=== PATIENT | female | born 1980 | race Caucasian/White ===

== ENCOUNTER 2019-04-13 18:53 | Inpatient (IN) | payer SELFPAY ==
[~2019-04-13] VITALS: Ht 172.7 cm; Wt 71.0 kg
[2019-04-13] MEDS ORDERED: SODIUM CHLORIDE 0.9% 1,000 ML IVB ONE (19:17)
[2019-04-13] MEDS ORDERED: PANTOPRAZOLE 40 MG/10 ML VIAL INJ IV STA (19:17)
[2019-04-13] MEDS ORDERED: MORPHINE SULFATE 4 MG/ML SYR/VIAL IV ONE (19:30)
[2019-04-13] MEDS ORDERED: ONDANSETRON HCL 4 MG/2 ML VIAL IV ONE (19:30)
[2019-04-13 20:40] LABS: Basophils # (auto) 0 uL; Basophils % (auto) 0.2 % (0.0-2.0); Eosinophils # (auto) 0 uL; Monocytes # (auto) 0.8 uL
[2019-04-13 20:42] LABS: Hemoglobin 14.4 g/dL (12.2-16.2); Lymphocytes % (auto) 7.6 % (10.0-50.0); Mean Corpuscular Hemoglobin 28.3 pg (28.0-32.0); Mean Corpuscular Hgb Conc. 32.8 g/dL (32.0-36.0); Mean Corpuscular Volume 86.2 fL (80.0-100.0); Neutrophils # (auto) 11.9 uL; Neutrophils % (auto) 86.2 % (37.0-80.0); Platelet Count (auto) 568 10^3/uL (140-450); Red Blood Cells 5.11 10^6/uL (4.0-5.20); Red Cell Distribution Width 14.6 % (11.8-14.3); White Blood Cell 13.7 10^3/uL (4.4-10.8)
[2019-04-13 20:53] LABS: Albumin 4.6 g/dL (3.4-5.0); BUN/Creatinine Ratio 11.6; Calcium 9.4 mg/dL (8.5-10.1); Potassium 3.9 mmol/L (3.5-5.1)
[2019-04-13 20:56] LABS: Bilirubin, Total 0.5 mg/dL (0.2-1.0); Total Protein 8.2 g/dL (6.4-8.2)
[2019-04-13] MEDS ORDERED: ALBUTEROL SULF 2.5 MG/0.5ML(0.5%) NEB SOLN HHN ONE (21:15)
[2019-04-13] MEDS ORDERED: LORazepam 2MG/ML-1ML VIAL IV ONE (21:45)
[2019-04-13] MEDS ORDERED: MORPHINE SULFATE 4 MG/ML SYR/VIAL IV PRN (22:15)
[2019-04-13] MEDS: D5W/SOD CHL 0.45% 1,000 ML IV SCH (22:34)
[2019-04-13] MEDS: HYDROmorphone HCL 2 MG/ML VL IV PRN (22:39)
[2019-04-13 23:17] VITALS: BP 124/73
--- NOTE | 2019-04-13 23:17 | NUR ---
MS admit from ER MARTHA WYNN admitted to tele/MS after SBAR received. Patient oriented to EDUAR ROJAS, RN primary RN, west unit, room 296, bed A, and unit policies regarding patient care and visiting hours. Patient weighed by bedscale and encouraged to call if they need something. All questions and concerns addressed, patient verbalized understanding. NG tube in place at 59 connected to low intermittent suctioning. Patient complained of pain but was told not pain medication was due at the moment.
[2019-04-13 23:25] VITALS: BP 124/73
[2019-04-14] MEDS: HYDROmorphone HCL 2 MG/ML VL IV PRN ×5 (02:47→20:07)
[2019-04-14] MEDS ORDERED: TEMA30CA PO (03:49)
[2019-04-14] MEDS ORDERED: BENA20TA14 PO (03:50)
[2019-04-14 05:00] VITALS: BP 125/71
[2019-04-14] MEDS: ONDANSETRON HCL 4 MG/2 ML VIAL IV PRN ×4 (05:23→23:59)
[2019-04-14 06:31] LABS: Basophils # (auto) 0 uL; Eosinophils # (auto) 0 uL; Lymphocytes # (auto) 0.7 uL; Mean Corpuscular Hemoglobin 28.5 pg (28.0-32.0); Red Cell Distribution Width 14.9 % (11.8-14.3); White Blood Cell 7.3 10^3/uL (4.4-10.8)
[2019-04-14 06:39] LABS: Basophils % (auto) 0.1 % (0.0-2.0); Hematocrit 38.8 % (36.0-46.0); Hemoglobin 12.7 g/dL (12.2-16.2); Lymphocytes % (auto) 9.2 % (10.0-50.0); Mean Corpuscular Hgb Conc. 32.9 g/dL (32.0-36.0); Mean Corpuscular Volume 86.8 fL (80.0-100.0); Monocytes # (auto) 0.5 uL; Monocytes % (auto) 7.2 % (0.0-12.0); Neutrophils # (auto) 6.1 uL; Neutrophils % (auto) 83.5 % (37.0-80.0); Platelet Count (auto) 492 10^3/uL (140-450); Red Blood Cells 4.46 10^6/uL (4.0-5.20)
[2019-04-14 06:52] LABS: Calcium 8.4 mg/dL (8.5-10.1)
--- NOTE | 2019-04-14 06:59 | NUR ---
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
[2019-04-14 08:00] VITALS: BP 122/71
--- NOTE | 2019-04-14 08:00 | NUR ---
Morning note Patient resting in bed with even and unlabored respirations, no distress noted. Instructed patient on POC, fall precautions and to call for assistance as needed. Patient verbalized understanding. fall precautions in place with call light within reach. will continue to monitor q1hr & PRN.
--- NOTE | 2019-04-14 09:30 | NUR ---
Patient vomiting clear emesis. Patient medicated per MD order.
[2019-04-14] MEDS ORDERED: GASTROGRAFIN 120 ML SOL ONE (10:09)
[2019-04-14] MEDS ORDERED: OMNIPAQUE ORAL SOLN 500ml 12mg/ml PO ONE (10:48)
--- NOTE | 2019-04-14 10:52 | NUR ---
Patient off unit at radiology.
[2019-04-14 11:07] LABS: Cholesterol 208 mg/dL (< 200); HDL Cholesterol 82 mg/dL (40-59); LDL Cholesterol 119 mg/dL (< 100); Triglycerides 69 mg/dL (< 150)
--- NOTE | 2019-04-14 11:38 | NUR ---
Paged MD/Patient returned to unit Paged Dr. Palacios to notify MD that patient was unable to tolerate the ordered small bowel series.
--- NOTE | 2019-04-14 11:42 | NUR ---
Dr. Palacios updated MD to come to the unit.
--- NOTE | 2019-04-14 11:55 | NUR ---
was at bedside - Dr. Palacios Order received and read back to verify.
[2019-04-14 12:00] VITALS: BP 133/70
--- NOTE | 2019-04-14 12:44 | NUR ---
UA collected and sent to lab per MD order.
[2019-04-14 13:02] LABS: Urine Bacteria NONE SEEN /hpf (None Seen); Urine Blood Negative /uL (Negative); Urine Budding Yeast OCCASIONAL /hpf (None Seen); Urine Mucus FEW (None Seen); Urine Specific Gravity 1.031 (1.001-1.035); Urine WBC 2 /hpf (0 - 5)
[2019-04-14] MEDS: METOCLOPRAMIDE HCL 5MG/ml INJ 2ml VIAL IV PRN (14:41)
[2019-04-14] MEDS: D5W/SOD CHL 0.45% 1,000 ML IV SCH (16:05)
--- NOTE | 2019-04-14 16:05 | NUR ---
RE: nausea Patient stated "the new nausea medication is helping much better. I've only thrown up once." Patient sitting in bed with even and unlabored respiration, no distress noted.
[2019-04-14 17:00] VITALS: BP 127/75
--- NOTE | 2019-04-14 18:51 | NUR ---
Closing note Patient resting in bed with even and unlabored respirations, no distress noted. Fall precautions in place with call light within reach.
--- NOTE | 2019-04-14 19:16 | NUR ---
Care endorsed to GEORGIA Pitts.
[2019-04-14] MEDS: LORazepam 0.5 MG TAB PO PRN (19:28)
[2019-04-14 22:56] VITALS: BP 116/68
[2019-04-15] MEDS: HYDROmorphone HCL 2 MG/ML VL IV PRN ×10 (00:01→23:51)
[2019-04-15] MEDS: LORazepam 0.5 MG TAB PO PRN ×2 (02:49→22:58)
[2019-04-15] MEDS: METOCLOPRAMIDE HCL 5MG/ml INJ 2ml VIAL IV PRN ×3 (04:01→17:29)
[2019-04-15] MEDS: D5W/SOD CHL 0.45% 1,000 ML IV SCH (04:06)
[2019-04-15 05:17] VITALS: BP 120/66
--- NOTE | 2019-04-15 07:15 | NUR ---
Morning note Patient resting in bed with even and unlabored respirations, no distress noted. Instructed patient on POC, fall precautions and to call for assistance as needed. Patient verbalized understanding. fall precautions in place with call light within reach. NGT in place per MD order. Patient reports pain and nausea. PRN anti-nausea and PRN pain medication not able to be administered at this time per MD order. Instructed patient on time medication can be administered. Patient verbalized understanding. Will continue to monitor q1hr & PRN.
--- NOTE | 2019-04-15 07:35 | NUR ---
RE: Pain Patient requesting pain and anti-nausea medication. Informed patient that PRN pain and anti-nausea medication is not able to be administered at this time per MD order. Informed patient of time that the medication can be administered. Patient verbalized understanding. Heat pack given to patient per patient's request for comfort. Call light within reach. Will continue to monitor q1hr & PRN.
[2019-04-15 08:00] VITALS: BP 137/89
--- NOTE | 2019-04-15 08:14 | NUR ---
RE: pain Patient reports increase in pain with minimal relief from ordered PRN pain medication. Patient reports vomiting with minimal relief from ordered PRN anti-nausea medication. Patient states "I can't do this another day. This pain is unbearable. I can't take it." Patient reports no BM, and reports passing gas 3 times in the past 12 hours. Patient reports the pain 10/10 located in the abdomen and lower back. NGT in place per MD order. Clear liquid output from NGT. Positive placement confirmed by auscultation.
--- NOTE | 2019-04-15 08:15 | NUR ---
Paged Dr. Palacios RE: pain
--- NOTE | 2019-04-15 08:38 | NUR ---
Updated Dr. Palacios - patient to be brought to pre-op now per MD
--- NOTE | 2019-04-15 08:52 | NUR ---
Patient taken to pre-op via hospital bed. Respirations even and unlabored, no distress noted. NGT in place. IV patent with no leaking and/or infiltration noted. Patient's fiance at bedside and updated on POC.
[2019-04-15] MEDS ORDERED: SUCCINYLCHOLINE CHLORIDE 20 MG/ML 10ML VIAL IV ONE (08:57)
[2019-04-15] MEDS ORDERED: LIDOCAINE 1% (LOCAL ANESTH.) PF 5ml SDV ONE (08:57)
[2019-04-15] MEDS ORDERED: ceFAZolin 1GM/50ML 50 ML IV ONE (09:04)
[2019-04-15] MEDS ORDERED: MIDAZOLAM HCL 1MG/1ML-2 ML VIAL ONE (09:24)
[2019-04-15] MEDS ORDERED: ROCURONIUM 10MG/ML 10ML VIAL IV ONE (09:30)
[2019-04-15] MEDS ORDERED: PROPOFOL 10 MG/ML 20 ML IV ONE (09:31)
[2019-04-15] MEDS ORDERED: ONDANSETRON HCL 4 MG/2 ML VIAL IV PRN (09:45)
[2019-04-15] MEDS ORDERED: NALOXONE HCL 0.4 MG/ML VIAL IV PRN (09:45)
[2019-04-15] MEDS ORDERED: HYDROmorphone HCL 2 MG/ML VL IV PRN (09:45)
[2019-04-15] MEDS ORDERED: fentaNYL CITRATE 100 MCG/2 ML VL ONE (09:47)
--- NOTE | 2019-04-15 10:04 | NUR ---
RE: intervention patient off unit at procedure. Addendum: 04/15/19 at 1141 by Jocelyn Cline RN Amended: Links added.
[2019-04-15] MEDS ORDERED: MEPERIDINE HCL (50 MG/ML) 1 ML VIAL ONE (10:20)
[2019-04-15] MEDS ORDERED: GLYCOPYRROLATE 0.2 MG/ML 1ML VIAL ONE (11:20)
[2019-04-15] MEDS ORDERED: NEOSTIGMINE 1 MG/ML INJ (10mg/10ML VIAL) ONE (11:20)
--- NOTE | 2019-04-15 12:00 | NUR ---
RE: intervention Patient off unit at procedure. Addendum: 04/15/19 at 1311 by Jocelyn Cline RN Amended: Links added.
[2019-04-15] MEDS ORDERED: ACETAMINOPHEN IV 100 ML IV ONE (12:04)
[2019-04-15] MEDS ORDERED: ACETAMINOPHEN IV 1000 MG/100ML (10MG/ML) IV ONE (12:15)
--- NOTE | 2019-04-15 13:00 | NUR ---
Patient returned to unit via hospital bed. Respirations even and unlabored respirations, no distress noted. NGT in place per MD order. Fernandez's Tube in place per MD order. Dressing to the abdomen is clean, dry and intact. Margarita patient's fiance, at bedside.
--- NOTE | 2019-04-15 13:01 | NUR ---
was at bedside - Dr. Fortune Orders received and read back to verify.
[2019-04-15] MEDS ORDERED: MORPHINE SULF INJ 2 MG/ML SYRINGE 1ML IV PRN (13:15)
[2019-04-15] MEDS ORDERED: KETOROLAC TROMETH 30 MG/ML 1ML VIAL IV ONE (13:15)
[2019-04-15] MEDS ORDERED: LACTATED RINGER'S 1,000 ML IV ONE (13:15)
--- NOTE | 2019-04-15 13:30 | NUR ---
Bilateral SCDs placed per MD order.
--- NOTE | 2019-04-15 15:03 | NUR ---
Patient transferred to room 276A via hospital bed. All personal belongings transferred with the patient. Margarita, patient's fiance, at bedside.
--- NOTE | 2019-04-15 15:46 | NUR ---
RE: Pain; contacted MD Contacted Dr. Fortune to notify that patient is reporting pain is not being managed with current PRN pain medication. Current VS read to MD. Dr. Fortune verbalized understanding. This RN instructed to continue to monitor patient and report back to MD in an hour RE: patient's pain.
--- NOTE | 2019-04-15 16:54 | NUR ---
RE: pain; updated MD Called Dr. Fortune to update MD on patient's pain after administration of PRN pain medication. Patient continues to report pain 10/10 in the abdomen. Patient stated "The pain is off the charts. I can't handle it. The morphine didn't even touch it." Dressing to abdomen is clean, dry and intact. Orders received and read back to verify.
[2019-04-15 17:02] VITALS: BP 117/60
--- NOTE | 2019-04-15 17:30 | NUR ---
Telemonitor #[id number] placed on the patient per MD order.
--- NOTE | 2019-04-15 19:28 | NUR ---
150ml output NGT; 0ml output Fernandez's Tube
--- NOTE | 2019-04-15 19:29 | NUR ---
Care endorsed to GEORGIA Escobar. Patient resting in bed with even and unlabored respirations, no distress noted. NGT in place per MD order and connected to LIS per MD order. Fernandez's Tube in place per MD order and connected to LIS per MD order. Abdominal binder in place per MD order. Dressing to the abdomen is clean, dry and intact. Bilateral SCD's in place per MD order. Patient able to shift weight in bed independently with minimal assistance. Patient reports pain has improved although "it is still up there on the charts." Incentive spirometry at bedside per MD order. Patient able to demonstrate proper usage of IS. Patient's donny Margarita, at bedside. Fall precautions in place with bed in lowest locked position with x2 side rails up and call light within reach.
--- NOTE | 2019-04-15 19:30 | NUR ---
Opening Shift Note Received report from day shift nurse. Patient is awake, alert and orientated x 4. No S/S of distress/SOB but pain 10/10 in the abdomen. Partner is at bedside. Patient abdominal dressing is clean, dry. NGT is on low intermittent suction. Bed is in lowest position with side rails up x 2. Bed brakes are locked and call light is with in reach. HOB is 30 degrees. Miguel catheter is in place, patent, draining and below bladder. Instructed on POC and to call for assist PRN, will continue to monitor for changes Q1hr and PRN.
--- NOTE | 2019-04-15 20:05 | NUR ---
Respiratory note: AT BEDSIDE PLACED CONT. POX. PROBE ON RIGHT INDEX FINGER. ALARMS ARE SET AND AUDIBLE TO NURSES STATION. RN MAGALIE AWARE OF PLACEMENT. RT NAME AND PAGER ASSIGNMENT WRITTEN ON PTS ROOM BOARD. PTS FIANCE AT BEDSIDE.
[2019-04-15 22:00] VITALS: BP 116/77
[2019-04-16] MEDS: D5W/SOD CHL 0.45% 1,000 ML IV SCH ×2 (00:07→16:47)
[2019-04-16] MEDS: HYDROmorphone HCL 2 MG/ML VL IV PRN ×7 (03:05→21:19)
[2019-04-16] MEDS: LORazepam 0.5 MG TAB PO PRN ×2 (04:37→16:47)
[2019-04-16 04:55] VITALS: BP 115/73
[2019-04-16 06:36] LABS: Basophils # (auto) 0 uL; Eosinophils # (auto) 0 uL; Hemoglobin 13.4 g/dL (12.2-16.2); Monocytes # (auto) 0.8 uL
[2019-04-16 06:41] LABS: Basophils % (auto) 0.2 % (0.0-2.0); Hematocrit 41.2 % (36.0-46.0); Lymphocytes % (auto) 10.8 % (10.0-50.0); Mean Corpuscular Hemoglobin 28.3 pg (28.0-32.0); Mean Corpuscular Hgb Conc. 32.6 g/dL (32.0-36.0); Mean Corpuscular Volume 86.6 fL (80.0-100.0); Monocytes % (auto) 9.2 % (0.0-12.0); Neutrophils % (auto) 79.8 % (37.0-80.0); Platelet Count (auto) 489 10^3/uL (140-450); Red Blood Cells 4.76 10^6/uL (4.0-5.20); Red Cell Distribution Width 14.7 % (11.8-14.3); White Blood Cell 8.8 10^3/uL (4.4-10.8)
[2019-04-16 06:55] LABS: Potassium 3.7 mmol/L (3.5-5.1)
[2019-04-16 07:00] LABS: Albumin 3.2 g/dL (3.4-5.0); BUN/Creatinine Ratio 21.1; Bilirubin, Total 0.5 mg/dL (0.2-1.0); Calcium 8.2 mg/dL (8.5-10.1); Magnesium 2.1 mg/dL (1.6-2.6); Total Protein 6.3 g/dL (6.4-8.2)
--- NOTE | 2019-04-16 07:24 | NUR ---
CLOSING NOTES ENDORSED CARE TO DAY SHIFT NURSEMARKOS.
[2019-04-16 09:00] VITALS: BP 121/72
[2019-04-16 13:00] VITALS: BP 124/76
--- NOTE | 2019-04-16 14:03 | NUR ---
NUTRITION ASSESSMENT NOTES Please refer to link notes of nutrition screen form filed under the intervention section of the plan of care for further details. Est. Needs: 1800 kcal to 2250 kcal (20-25 kcal/kgBW), 72 gms to 90 gms pro (0.8-1.0 gms/kgBW). Will continue to monitor pertinent labs and reassess nutrient need prn Thank you. Addendum: 04/16/19 at [address] Amended: Links added.
[2019-04-16 17:00] VITALS: BP 122/71
--- NOTE | 2019-04-16 19:16 | NUR ---
Opening Shift Note Received report from day shift nurse. Patient is awake, alert and orientated x 4. No S/S of distress/SOB but pain 8/10 in the abdomen. Partner is at bedside. Patient abdominal dressing is clean, dry and intact. Bed is in lowest position with side rails up x 2. Bed brakes are locked and call light is with in reach. HOB is 30 degrees. Miguel catheter is in place, patent, draining and below bladder. Instructed on POC and to call for assist PRN, will continue to monitor for changes Q1hr and PRN.
[2019-04-16 22:00] VITALS: BP 128/66
[2019-04-17] MEDS: HYDROmorphone HCL 2 MG/ML VL IV PRN ×8 (00:19→21:21)
[2019-04-17] MEDS: LORazepam 0.5 MG TAB PO PRN ×3 (01:35→23:05)
[2019-04-17 05:00] VITALS: BP 114/72
--- NOTE | 2019-04-17 07:15 | NUR ---
closing notes endorsed care to day shift nurseEmma.
--- NOTE | 2019-04-17 07:30 | NUR ---
Opening Shift Note Assumed care of patient, who is alert and oriented x4. No S/S of distress/SOB. Patient complaining of abdominal discomfort. Will medicate per MD order. Abdominal dressing is dry and intact. Bed is in lowest position with 2x side rails up for safety. Call light is within reach. Updated patient on POC and to call for assist PRN, will continue to monitor for changes Q1hr and PRN.
[2019-04-17 08:00] VITALS: BP 118/76
--- NOTE | 2019-04-17 08:25 | NUR ---
Patient ambulating Patient ambulating in hallway with walker, assisted by partner, Margarita.
[2019-04-17 09:00] VITALS: BP 118/76
[2019-04-17] MEDS: D5W/SOD CHL 0.45% 1,000 ML IV SCH (09:18)
--- NOTE | 2019-04-17 10:55 | NUR ---
Patient ambulating Patient ambulating in hallway with walker, assisted by partner, Margarita.
--- NOTE | 2019-04-17 11:18 | NUR ---
SAW PATIENT AMBULATING IN HALLWAY WITH FWW. NO ASSISTANCE NEEDED. D/C TO NURSING. PT DOES NOT REQUIRE PHYSICAL THERAPY. Addendum: 04/17/19 at 1121 by NICK CHAVES PTT Amended: Links added.
--- NOTE | 2019-04-17 11:43 | NUR ---
at bedside Dr. Tong grimaldo.
[2019-04-17 13:00] VITALS: BP 131/73
[2019-04-17 17:00] VITALS: BP 141/80
--- NOTE | 2019-04-17 19:16 | NUR ---
Opening Shift Note Assumed care of patient, awake and alert. No S/S of distress/SOB or pain. Instructed on POC and to call for assist PRN, will continue to monitor for changes Q1hr and PRN. Side rails up x2. Bed locked in lowest position. Call light within reach.
[2019-04-17 22:00] VITALS: BP 122/79
[2019-04-18] MEDS: HYDROmorphone HCL 2 MG/ML VL IV PRN ×8 (00:36→21:31)
[2019-04-18] MEDS: D5W/SOD CHL 0.45% 1,000 ML IV SCH ×2 (02:16→18:37)
[2019-04-18 05:43] VITALS: BP 115/78
--- NOTE | 2019-04-18 07:41 | NUR ---
Endorsed care to day shift RN.
[2019-04-18 09:00] VITALS: BP_SYST 121; BP_SYST 127; BP_DIAS 67; BP_DIAS 78
--- NOTE | 2019-04-18 09:50 | NUR ---
PATIENT AMBULATING WITH FAMILY MEMBER.
--- NOTE | 2019-04-18 12:15 | NUR ---
Nutrition Follow-up Notes Wt.:90.5 kg Pt was not on her bed walking in hallway with no family by bedside. per records pt with SBO s/p sx for same. pt continues to be NPO Est. Needs: 1800 kcal to 2250 kcal (20-25 kcal/kgBW), 72 gms to 90 gms pro (0.8-1.0 gms/kgBW). Will continue to monitor pertinent labs and reassess nutrient need prn Labs: GLU 139 H, ALB 3.2 L, CA 8.2 L. Skin: Estuardo scale 19 low risk incision at site of sx per RN doc GI: Pt has no BM reported home health clinician. PES: Obesity r./t excessive PO intake aeb 141% IBW, BMI 30.2 kg/m2 and increased body adiposity Altered nutrition related lab values r/t current/chronic medical condition aeb hyperglycemia, hyperchloremia, elev. lipid panels, hypocalcemia and mild hypoalbuminemia Will continue to monitor NPO status, skin status, pertinent labs and weight trend. F/u in 2-3 days. Rec.: 1.) Advance gradually to oral diet (Soft Low Fat) when medically appropriate. 2.) If Albumin continues trending down, consider Prostat 1 pkt BID. 3.) If still NPO in next 48 hrs, consider alternate nutrition support if medically appropriate. 4.) Refer to RD for further nutrition educ. and weight monitoring upon discharge. 5.) Continue current plan of care.
[2019-04-18 13:15] VITALS: BP 124/85
--- NOTE | 2019-04-18 14:47 | NUR ---
Chel WHITMAN AT BEDSIDE. INFORMED OF PATIENT STATUS INCLUDING VITAL SIGNS. INFORMED OF TEMP OF 100.1 F WHICH THEN DROPPED TO 99.5. WILL CONTINUE CARE.
[2019-04-18 17:07] VITALS: BP 116/71
[2019-04-18] MEDS: LORazepam 0.5 MG TAB PO PRN ×2 (17:18→23:34)
--- NOTE | 2019-04-18 18:50 | NUR ---
IV insertion IV access obtained, via clean sterile technique by inserting 22 gauge catheter at LFA after 1 attempt(s). IV secured properly. No trauma to site. Patient tolerated well. IV TO RAC DC. TOLERATED WELL. NOTE:
--- NOTE | 2019-04-18 18:55 | NUR ---
DRESSING CHANGE. DRESSING LOOSE AND SATURATED WITH MINIMAL YELLOW FLUID, NO ODOR. DRESSING CHANGED USING STERILE TECHNIQUE. PATIENT TOLERATED WELL.
[2019-04-18] MEDS: MINERAL OIL 30 ML GT SCH (21:31)
[2019-04-18 21:39] VITALS: BP 134/72
[2019-04-19] MEDS: HYDROmorphone HCL 2 MG/ML VL IV PRN ×8 (00:35→22:07)
[2019-04-19 05:05] VITALS: BP 127/68
--- NOTE | 2019-04-19 07:21 | NUR ---
Endorsed care to day shift RN.
[2019-04-19 08:00] VITALS: BP 109/53
[2019-04-19] MEDS: MINERAL OIL 30 ML GT SCH ×2 (10:00→21:55)
[2019-04-19] MEDS: LORazepam 0.5 MG TAB PO PRN (10:50)
[2019-04-19 12:00] VITALS: BP 117/67
[2019-04-19] MEDS: D5W/SOD CHL 0.45% 1,000 ML IV SCH (12:27)
--- NOTE | 2019-04-19 15:41 | NUR ---
SAKSHI JEAN-BAPTISTE'Venus. PATIENT TOLERATED WELL. PATIENT IMMEDIATELY URINATED.
[2019-04-19 17:01] VITALS: BP 121/66
--- NOTE | 2019-04-19 20:00 | NUR ---
Opening Shift Note Assumed care of patient, awake and alert. Patient complained of abdominal pain 02/04. Medication administered as ordered. Abdominal incision inspected, dressing is clean, dry and intact. No drainage or odor noted. Fernandez's tube is draining properly, no kinks or obstruction. Instructed on POC and to call for assist PRN, will continue to monitor for changes Q1hr and PRN. Signed: 04/20/19 at 0117 by ANI BEEBE SN <Co-Signature Required> Co-Signed: 04/20/19 at 0117 by BRAXTON MEANS RN
[2019-04-19 22:15] VITALS: BP 134/80
[2019-04-20] MEDS: HYDROmorphone HCL 2 MG/ML VL IV PRN ×8 (00:50→22:05)
[2019-04-20] MEDS: D5W/SOD CHL 0.45% 1,000 ML IV SCH ×2 (04:05→22:41)
[2019-04-20 05:19] VITALS: BP 100/79
[2019-04-20 09:00] VITALS: BP 116/69
[2019-04-20] MEDS: MINERAL OIL 30 ML GT SCH ×2 (11:00→22:30)
[2019-04-20] MEDS: LORazepam 0.5 MG TAB PO PRN ×2 (11:12→23:02)
[2019-04-20 13:00] VITALS: BP 126/71
--- NOTE | 2019-04-20 14:20 | NUR ---
Nutrition Follow-up Notes Wt.: 92.6 kg as of yesterday. Pt's with family member at bedside denies discomfort except for mild abdominal incision pain when rounded this morning. 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 Pt's s/p explor lap (04/15/19), passing some gas, per pt, remains NPO except for ice chips with MD's order for small amount of Clear Liquids, per nursing. Est. Needs: 1800 kcal to 2250 kcal (20-25 kcal/kgBW), 72 gms to 90 gms pro (0.8-1.0 gms/kgBW). Will continue to monitor pertinent labs and reassess nutrient need prn Labs: No new labs since 04/16/19 - Gluc 139 H, Cl 109 H, ca 8.2 L, Tpro 6.3 L, Alb 3.2 L Skin: Estuardo scale 22, low risk, pt's anterior medial abdomen incision dry and intact per documentation analyst GI: Pt had 1 BM this morning documentation analyst. PES: Increased nutrient needs r/t altered GI functions aeb Intractable abdominal pain, SBO, s/p surgery, mild hypoalbuminemia, NPO. Altered nutrition related lab values r/t current/chronic medical condition aeb hyperglycemia, hyperchloremia, elev. lipid panels, hypocalcemia and mild hypoalbuminemia Obesity r/t excessive PO intake aeb 141% IBW, BMI 30.2 kg/m2 and increased body adiposity Will continue to monitor NPO status, skin status, pertinent labs and weight trend. F/u in 2 to 3 days. Rec.: 1.) Advance gradually to oral diet (Soft Low Fat) when medically appropriate. 2.) Consider to continue monitoring pertinent labs; If Albumin continues trending down, consider Prostat 1 pkt BID. 3.) If still NPO in next 36 hrs, consider alternate nutrition/PN support if medically appropriate. 4.) Refer to RD for further nutrition educ. and weight monitoring upon discharge. 5.) Continue current plan of care.
[2019-04-20 17:22] VITALS: BP 122/75
[2019-04-20] MEDS: ACETAMINOPHEN/CODEINE#3 (300/30mg) TAB PO PRN (20:45)
[2019-04-21] MEDS: HYDROmorphone HCL 2 MG/ML VL IV PRN ×8 (01:10→23:06)
[2019-04-21] MEDS: ACETAMINOPHEN/CODEINE#3 (300/30mg) TAB PO PRN ×4 (02:37→21:01)
[2019-04-21 05:36] VITALS: BP 127/70
[2019-04-21 06:00] VITALS: BP 128/75
[2019-04-21 08:00] VITALS: BP 128/75
--- NOTE | 2019-04-21 08:30 | NUR ---
Opening Shift Note Assumed care of patient, awake, alert and oriented x4 . No S/S of distress/SOB. Patient c/o abdominal site pain due to exploratory laboratory. Rates pain at 8/10. Will medicate as prescribed by MD. Bed at lowest locked position, bed side rails up x2 and call light within reach. Instructed on POC and to call for assist PRN, will continue to monitor for changes Q1hr and PRN.
[2019-04-21] MEDS: MINERAL OIL 30 ML GT SCH ×2 (10:00→22:08)
[2019-04-21 11:23] LABS: Eosinophils # (auto) 0 uL; Mean Corpuscular Volume 82.3 fL (80.0-100.0)
[2019-04-21 11:24] LABS: Basophils # (auto) 0.2 uL; Eosinophils % (auto) 0.1 % (0.0-7.0); Hematocrit 32.7 % (36.0-46.0); Hemoglobin 11.3 g/dL (12.2-16.2); Lymphocytes # (auto) 0.8 uL; Lymphocytes % (auto) 4.3 % (10.0-50.0); Mean Corpuscular Hemoglobin 28.5 pg (28.0-32.0); Mean Corpuscular Hgb Conc. 34.7 g/dL (32.0-36.0); Monocytes # (auto) 1.4 uL; Monocytes % (auto) 7.2 % (0.0-12.0); Neutrophils # (auto) 16.7 uL; Neutrophils % (auto) 87.4 % (37.0-80.0); Platelet Count (auto) 492 10^3/uL (140-450); Red Blood Cells 3.98 10^6/uL (4.0-5.20); Red Cell Distribution Width 14.1 % (11.8-14.3); White Blood Cell 19.1 10^3/uL (4.4-10.8)
[2019-04-21 11:35] LABS: Albumin 2.1 g/dL (3.4-5.0); Calcium 7.9 mg/dL (8.5-10.1); Magnesium 1.5 mg/dL (1.6-2.6)
[2019-04-21 11:40] LABS: BUN/Creatinine Ratio 8.3; Bilirubin, Total 0.5 mg/dL (0.2-1.0); Total Protein 5.7 g/dL (6.4-8.2)
[2019-04-21 12:04] LABS: Potassium 2.9 mmol/L (3.5-5.1)
--- NOTE | 2019-04-21 12:10 | NUR ---
Cayla SWANSON regarding Critical lab value. Awaiting call back. Addendum: 04/21/19 at 1427 by Merary Carmona RN second page for .
--- NOTE | 2019-04-21 12:10 | NUR ---
UA Urine sample collected and sent to lab.
--- NOTE | 2019-04-21 12:30 | NUR ---
VILLELA TUBE IRRIGATED PER MD ORDERS. PATIENT TOLERATED WELL.
[2019-04-21] MEDS: PIPERACILLIN-TAZO 4.5GM 100 ML IV SCH ×2 (12:38→18:00)
[2019-04-21] MEDS: LORazepam 0.5 MG TAB PO PRN ×2 (12:45→22:07)
--- NOTE | 2019-04-21 12:50 | NUR ---
Patient c/o pain at surgical site. Feels anxious due to the pain. Will medicate as prescribed by MD. Will continue to monitor.
[2019-04-21 13:00] VITALS: BP 123/68
[2019-04-21] MEDS ORDERED: VANCOMYCIN PER PHARMACY 0 MG IV SCH (15:30)
[2019-04-21] MEDS ORDERED: POTASSIUM CHLORIDE 60 MEQ, LIDOCAINE 1% (LOCAL ANESTH.) 6 ML in SODIUM CHL 0.9% 500 ML IV ONE (15:30)
[2019-04-21] MEDS: SOD CHL 0.9%/ KCL 40MEQ 1,000 ML IV SCH (15:48)
[2019-04-21 16:10] LABS: INR 1.28 (0.9-1.15)
[2019-04-21 16:14] VITALS: BP 120/65
[2019-04-21] MEDS: MAGNESIUM SULFATE 1GM/100ML 100 ML IV SCH (17:48)
[2019-04-21] MEDS ORDERED: VANCOMYCIN 1GM/250ML 250 ML IV SCH (19:00)
--- NOTE | 2019-04-21 20:00 | NUR ---
PATIENT FROM DAY SHIFT RN. PATIENT RESTING IN BED. NO S/S OF DISTRESS NOTED. C/O PAIN @ 12/04. WILL COME BACK FOR PAIN MEDICATION LATER. INCISION ON ABD C/D/I WITH SHARAD INTACT. VILLELA TUBE IN PLACE ON LIS. POC INSTRUCTED AND ENCOURAGED PATIENT TO CALL FOR MANAGER FIELD INVESTIGATIONS IF NEEDED. BED IN LOWEST POSITION WITH SIDE RAILS UP X 2. CALL DUNBAR WITHIN REACH. CONTINUE TO MONITOR FOR CHANGES Q1H AND PRN.
--- NOTE | 2019-04-21 21:05 | NUR ---
MEDICATED PATIENT FOR PAIN @ 10/04. CONTINUE TO MONITOR.
[2019-04-21 22:00] VITALS: BP 104/57
--- NOTE | 2019-04-21 22:38 | NUR ---
VILLELA TUBE IRRIGATED ORDERED. PATIENT TOLERATED WELL. CONTINUE TO MONITOR.
[2019-04-21] MEDS: VANCOMYCIN 1GM/250ML 250 ML IV SCH (22:57)
--- NOTE | 2019-04-21 23:10 | NUR ---
MEDICATED PATIENT FOR PAIN @ 12/04. CONTINUE TO MONITOR.
[2019-04-22] VITALS (7 sets, daily range): BP systolic 105–123; BP diastolic 63–81
[2019-04-22] MEDS: PIPERACILLIN-TAZO 4.5GM 100 ML IV SCH ×5 (00:32→23:37)
[2019-04-22] MEDS: ACETAMINOPHEN/CODEINE#3 (300/30mg) TAB PO PRN ×5 (01:20→20:19)
--- NOTE | 2019-04-22 01:20 | NUR ---
MEDICATED PATIENT FOR PAIN @ 10/04. CONTINUE TO MONITOR.
[2019-04-22] MEDS ORDERED: MAGNESIUM SULFATE 1GM/100ML 100 ML IV ONE ×3 (01:22→04:03)
[2019-04-22] MEDS: MAGNESIUM SULFATE 1GM/100ML 100 ML IV SCH ×3 (01:38→04:10)
[2019-04-22] MEDS: HYDROmorphone HCL 2 MG/ML VL IV PRN ×7 (02:01→21:15)
--- NOTE | 2019-04-22 02:01 | NUR ---
MEDICATED PATIENT FOR PAIN @ 12/04. CONTINUE TO MONITOR.
[2019-04-22] MEDS: LORazepam 0.5 MG TAB PO PRN ×3 (04:11→19:27)
[2019-04-22] MEDS: SOD CHL 0.9%/ KCL 40MEQ 1,000 ML IV SCH ×2 (04:50→17:43)
--- NOTE | 2019-04-22 05:07 | NUR ---
MEDICATED PATIENT FOR PAIN @ 12/04 ORDERED. CONTINUE TO MONITOR.
[2019-04-22] MEDS: VANCOMYCIN 1GM/250ML 250 ML IV SCH ×3 (06:23→22:13)
--- NOTE | 2019-04-22 06:24 | NUR ---
MEDICATED PATIENT FOR PAIN @ 5/10 ORDERED. CONTINUE TO MONITOR.
[2019-04-22 06:39] LABS: Basophils # (auto) 0 uL; Basophils % (auto) 0.1 % (0.0-2.0); Eosinophils # (auto) 0.2 uL; Eosinophils % (auto) 1.1 % (0.0-7.0); Hemoglobin 9.9 g/dL (12.2-16.2); Lymphocytes # (auto) 0.9 uL; Lymphocytes % (auto) 5.1 % (10.0-50.0); Mean Corpuscular Hemoglobin 28.5 pg (28.0-32.0); Mean Corpuscular Volume 83.8 fL (80.0-100.0); Monocytes # (auto) 0.9 uL; Monocytes % (auto) 5.3 % (0.0-12.0); Neutrophils # (auto) 15.9 uL; Neutrophils % (auto) 88.4 % (37.0-80.0); Platelet Count (auto) 436 10^3/uL (140-450); Red Blood Cells 3.46 10^6/uL (4.0-5.20); Red Cell Distribution Width 14.6 % (11.8-14.3)
[2019-04-22 06:48] LABS: Albumin 1.8 g/dL (3.4-5.0); Calcium 7.9 mg/dL (8.5-10.1); Magnesium 2.6 mg/dL (1.6-2.6); Potassium 3.5 mmol/L (3.5-5.1)
[2019-04-22 06:53] LABS: BUN/Creatinine Ratio 11.4; Bilirubin, Total 0.5 mg/dL (0.2-1.0); Total Protein 5.3 g/dL (6.4-8.2)
--- NOTE | 2019-04-22 08:10 | NUR ---
Opening Shift Note Assumed care of patient, awake, alert and oriented x4 . No S/S of distress/SOB. Patient c/o abdominal site pain. Rates pain at 8/10. Will medicate as prescribed by MD. Bed at lowest locked position, bed side rails up x2 and call light within reach. Instructed on POC and to call for assist PRN, will continue to monitor for changes Q1hr and PRN.
--- NOTE | 2019-04-22 08:30 | NUR ---
IV removal Patient c/o pain at Left IV site. IV site is tender to touch. IV DC'd with clean sterile technique, catheter fully intact. Pressure dressing applied to site. Patient tolerated well.
--- NOTE | 2019-04-22 11:30 | NUR ---
VILLELA TUBE IRRIGATED PER MD ORDERS. PATIENT TOLERATED WELL.
--- NOTE | 2019-04-22 12:46 | NUR ---
Nutrition Follow-up Notes Wt.: 77.1 kg Pt's sleeping with no family by bedside. Pt's s/p explor lap (04/15/19), now advanced to clear liq diet with adequate PO of 75% x 2 per RN doc Est. Needs: 1800 kcal to 2250 kcal (20-25 kcal/kgBW), 72 gms to 90 gms pro (0.8-1.0 gms/kgBW). Will continue to monitor pertinent labs and reassess nutrient need prn Labs: GLU 113 H, CA 7.9 L, ALB 1.8 L, Skin: Estuardo scale 19, low risk, pt's anterior medial abdomen incision dry and intact per mushroom packer GI: Pt had 1 BM this morning mushroom packer. PES: Increased nutrient needs r/t altered GI functions aeb Intractable abdominal pain, SBO, s/p surgery, mild hypoalbuminemia, NPO. Altered nutrition related lab values r/t current/chronic medical condition aeb hyperglycemia, hyperchloremia, elev. lipid panels, hypocalcemia and mild hypoalbuminemia Obesity r/t excessive PO intake aeb 141% IBW, BMI 30.2 kg/m2 and increased body adiposity Will continue to monitor PO intake, skin status, pertinent labs and weight trend. F/u in 2 to 3 days. Rec.: 1.) Advance gradually to oral diet (Soft Low Fat) when medically appropriate. 2.) Consider to continue monitoring pertinent labs; If Albumin continues trending down, consider Prostat 1 pkt BID. 3.) Refer to RD for further nutrition educ. and weight monitoring upon discharge. 4.) Continue current plan of care.
[2019-04-22] MEDS: MINERAL OIL 30 ML GT SCH ×2 (13:20→22:13)
[2019-04-22] MEDS ORDERED: IOHEXOL 300 MG/ML 100ML BOTTLE IJ ONE ×2 (13:44→16:08)
[2019-04-22] MEDS ORDERED: OMNIPAQUE ORAL SOLN 500ml 12mg/ml PO ONE (13:48)
--- NOTE | 2019-04-22 13:50 | NUR ---
WHILE PREPPING THE IV VANCOMYCIN ANTIBIOTIC, THE VIAL BROKE OFF AND FLEW ACROSS THE FLOOR. THE VIAL HIT THE GROUND AND BROKE. PATIENT HAD MINIMAL ANTIBIOTIC FLUID ON HER LEFT CHEEKBONE OTHERWISE PATIENT WAS NOT HARMED. NO SCRATCHES, BRUISES OR OPEN AREAS ON FACE NOTED/CAUSED. PATIENT STATED " I AM OKAY". WASTED VANCOMYCIN MEDICATION ON PYXIS. CHARGE NURSE AWARE.
--- NOTE | 2019-04-22 17:59 | NUR ---
Patient c/o severe pain 03/06. MD Palacios aware, will medicate as prescribed by .
--- NOTE | 2019-04-22 18:14 | NUR ---
DR. WHITMAN AT BEDSIDE, UPDATING PATIENT ON POC. . MD AWARE OF PATIENTS PAIN.
[2019-04-22] MEDS ORDERED: D5W/SOD CHL 0.45%/KCL 40MEQ 1,000 ML IV ONE (18:15)
--- NOTE | 2019-04-22 19:10 | NUR ---
OPENING NOTE Received report from day shift RN. Patient is A&O X's 4 with no s/s of respiratory distress. Patient reporting abdominal pain 9/10 and requesting ativan at this time. Educated patient on pain management/medication and POC. Will provide medication as ordered. Educated patient that she will have nothing to eat or drink after midnight in preparation for the surgery tomorrow. Patient verbalized understanding. Bed is in lowest/locked position with side rails up X's 2 and call light is within reach of patient. Commode is at bedside. Patient has verma tube to abdomen in place. Site appears erythema and minimally edematous. Patient has midline incision with stefanie intact to the top and some stefanie removed and wound packed with gauze. This was done by . Incision is open to air. No drainage noted. Patient reports no flatus today. Will continue care.
--- NOTE | 2019-04-22 22:10 | NUR ---
VILLELA TUBE IRRIGATED PER MD ORDERS. PATIENT TOLERATED WELL THROUGHOUT AND AFTER PROCEDURE. WILL CONTINUE CARE.
--- NOTE | 2019-04-23 | NUR ---
PATIENT NPO Patient is NPO. Patient aware and verbalized understanding
[2019-04-23] MEDS: HYDROmorphone HCL 2 MG/ML VL IV PRN ×11 (00:21→23:38)
--- NOTE | 2019-04-23 01:48 | NUR ---
ROUNDS Patient is in bed, with eyes closed and appears to be resting. No s/s of distress or discomfort is noted. Will continue care.
--- NOTE | 2019-04-23 05:00 | NUR ---
CHG WIPES Prepped patient with CHG wipes. Patient tolerated well. All new linen and gown applied.
[2019-04-23 05:09] VITALS: BP 115/63
--- NOTE | 2019-04-23 05:13 | NUR ---
CALLED LAB REGARDING VANCO TROUGH Vanco trough to be done at 0500. Lab informed me that they do Vanco levels first so they should be coming around soon.
[2019-04-23] MEDS: PIPERACILLIN-TAZO 4.5GM 100 ML IV SCH ×3 (05:45→17:15)
--- NOTE | 2019-04-23 05:45 | NUR ---
IV ATTEMPT Attempted 2nd IV to right arm without success. Attempt was made by another RN without success. Was trying to secure a 2nd IV because 2 antibiotics are due at 0600. Will administer Zosyn until Vanco trough results are in. Will continue care.
[2019-04-23 06:05] LABS: Basophils # (auto) 0 uL; Eosinophils # (auto) 0.2 uL; Eosinophils % (auto) 0.7 % (0.0-7.0); Hematocrit 30.1 % (36.0-46.0); Hemoglobin 10.2 g/dL (12.2-16.2); Lymphocytes # (auto) 0.7 uL; Lymphocytes % (auto) 3.4 % (10.0-50.0); Mean Corpuscular Hemoglobin 28.1 pg (28.0-32.0); Mean Corpuscular Hgb Conc. 33.9 g/dL (32.0-36.0); Mean Corpuscular Volume 82.9 fL (80.0-100.0); Monocytes # (auto) 0.6 uL; Monocytes % (auto) 2.9 % (0.0-12.0); Neutrophils # (auto) 20.2 uL; Platelet Count (auto) 485 10^3/uL (140-450); Red Blood Cells 3.63 10^6/uL (4.0-5.20); Red Cell Distribution Width 14.3 % (11.8-14.3); White Blood Cell 21.7 10^3/uL (4.4-10.8)
[2019-04-23 06:28] LABS: Calcium 8.1 mg/dL (8.5-10.1); Potassium 3.5 mmol/L (3.5-5.1)
[2019-04-23 06:31] LABS: INR 1.12 (0.9-1.15); Partial Thromboplastin Time 27.5 sec (23.64-32.05)
[2019-04-23 06:34] LABS: BUN/Creatinine Ratio 9.8; Bilirubin, Total 0.6 mg/dL (0.2-1.0); Total Protein 5.6 g/dL (6.4-8.2)
[2019-04-23] MEDS: VANCOMYCIN 1GM/250ML 250 ML IV SCH (06:46)
--- NOTE | 2019-04-23 06:55 | NUR ---
CALLED PHARMACY Informed pharmacy that 0600 Vanco was given about 45 minutes late this morning due to waiting for trough level results.
--- NOTE | 2019-04-23 07:40 | NUR ---
Patient left to OR.
[2019-04-23] MEDS ORDERED: ROCURONIUM 10MG/ML 10ML VIAL IV ONE (08:13)
[2019-04-23] MEDS ORDERED: MIDAZOLAM HCL 1MG/1ML-2 ML VIAL ONE (08:13)
[2019-04-23] MEDS ORDERED: fentaNYL CITRATE 100 MCG/2 ML VL ONE ×2 (08:13→09:02)
[2019-04-23] MEDS ORDERED: PROPOFOL 10 MG/ML 20 ML IV ONE (08:14)
[2019-04-23 08:49] VITALS: BP 114/64
[2019-04-23] MEDS ORDERED: ceFAZolin 1GM VL ONE (09:04)
[2019-04-23] MEDS ORDERED: POVIDONE IODINE 10 % TOPICAL OINT 30GM TOP ONE (09:23)
[2019-04-23] MEDS ORDERED: HYDROmorphone HCL 2 MG/ML VL ONE (09:31)
[2019-04-23] MEDS ORDERED: ePHEDrine SULFATE 50 MG/ML AMP IV PRN (09:45)
[2019-04-23] MEDS ORDERED: ONDANSETRON HCL 4 MG/2 ML VIAL IV PRN (09:45)
[2019-04-23] MEDS ORDERED: HYDROmorphone HCL 2 MG/ML VL IV PRN (09:45)
[2019-04-23] MEDS ORDERED: hydrALAZINE HCL 20 MG/ML VL IV PRN (09:45)
--- NOTE | 2019-04-23 11:26 | NUR ---
Per Mel SAND AND GRAVEL PLANT OPERATOR, patient can have diet as tolerated per dr. Palacios. Patient notified.
[2019-04-23] MEDS: MINERAL OIL 30 ML GT SCH ×2 (11:27→22:27)
--- NOTE | 2019-04-23 11:27 | NUR ---
Per Mel GLASS FORMING CREW MEMBER, subcutaneous drain no need to be negative pressure. Leave it open.
--- NOTE | 2019-04-23 11:30 | NUR ---
VILLELA TUBE IRRIGATED PER MD ORDERS. PATIENT TOLERATED WELL THROUGHOUT AND AFTER PROCEDURE. WILL CONTINUE CARE.
--- NOTE | 2019-04-23 12:13 | NUR ---
Dr. Palacios paged regarding PICC line consent need to be signed. Awaiting to call back.
[2019-04-23 12:14] LABS: Magnesium 2.1 mg/dL (1.6-2.6); Phosphorus 3.3 mg/dL (2.5-4.90)
[2019-04-23] MEDS: KETOROLAC TROMETH 30 MG/ML 1ML VIAL IV PRN (12:27)
[2019-04-23 12:33] VITALS: BP 108/64
--- NOTE | 2019-04-23 12:42 | NUR ---
Telephone order received for PICC line consent from Dr. Palacios.
[2019-04-23] MEDS: VANCOMYCIN 1,250 MG in D5W 5% 250 ML IV SCH ×2 (14:00→22:05)
[2019-04-23] MEDS: SODIUM CHLORIDE 0.9% 1,000 ML IV SCH (14:45)
[2019-04-23] MEDS: ACETAMINOPHEN/CODEINE#3 (300/30mg) TAB PO PRN (16:07)
[2019-04-23 16:27] VITALS: BP 96/47
--- NOTE | 2019-04-23 16:56 | NUR ---
assessment Patient is a 38 year old female who is alert and oriented. Patients cognitive abilities are intact. Prior to admission patient lived home with family and functioned independently. Patient informed me she is able to care for her own ADLs. Per patient she will return home to her prior living arrangements post discharge and family will transport her home. Patient feels safe returning home on discharge. Patient informed me she will have help from family and her fiance on discharge if she needs help. Patient has no post discharge needs at this time. Patient has no insurance. Patient has been assessed by Nicho Paulino of [facility]. Patients [facility] application is secure. I have provided patient with resources for [facility], Dr. Arellano, and [facility] urgent care for follow up visits. I have provided patient with a prescription card from community assistance program. I informed patient she has a right to speak to a psychiatric social worker regarding all care. I informed patient she has a right to participate in any and all discharge planning. Patient does not have a POA and advanced directive. I have offered patient information on POA and advanced directives. I informed the patient the advantages and benefits of having an Advanced Directive. Patient verbalized understanding and agreed to discharge plan. Addendum: 04/23/19 at 1659 by Norah MENESES Amended: Links added.
[2019-04-23] MEDS ORDERED: LIDOCAINE 1% (LOCAL ANESTH.) PF 5ml SDV ID ONE (18:45)
--- NOTE | 2019-04-23 18:54 | NUR ---
PICC line placement Patient/Patient significant other educated on need for PICC line placement. All risks and benefits explained and all questions and concerns addressed prior to procedure. Noted past medical history and allergies with no contraindications. INR and Plt counts within acceptable range. 5FR PICC line inserted via LEFT BASILIC vein using [facility] [employer] US and Tip Location System. Sterile technique with maximum barrier precautions utilized. Blood return obtained from each of TWO lumens and each flushed easily with NS using proper technique. PICC secured with Stat-lock; biodisc and occlusive dressing applied. Stat portable chest x-ray obtained for PICC tip placement. *Baseline Arm Circumference . PICC lot #[id number]. INTERNAL LENGTH 46CM EXTERNAL LENGTH 0CM
--- NOTE | 2019-04-23 18:58 | NUR ---
Emptied 50 ml of clear light yellow fluid from intraperitoneal drain.
[2019-04-23] MEDS ORDERED: TPN PER PHARMACY 0 ML IV SCH (19:15)
--- NOTE | 2019-04-23 19:35 | NUR ---
Opening Shift Note Assumed care of patient, awake and alert. No S/S of distress/SOB or pain. Noted abdominal incision moderately soaked with Fernandez's tube and LEON drain intact. Miguel draining to light jeremie urine by gravity. Instructed on POC and to call for assist as needed. Patient verbalized understanding, call light within reach, will continue to monitor
--- NOTE | 2019-04-23 19:40 | NUR ---
Dressing to abdominal incision changed, incision stefanie intact. Covered wound with betadine soaked kerlix and covered with abdominal pads. Secured with Smith strap, patient tolerated well
[2019-04-23] MEDS ORDERED: AMINO ACID ELECTROLYTE INFUSIO 1,000 ML IV ONE (20:00)
[2019-04-23 22:00] VITALS: BP 108/61
[2019-04-23] MEDS: SODIUM CHLOR 0.9% PF (SALINE LOCK) 10ML VIAL/SYR IV SCH (22:05)
[2019-04-24] MEDS: PIPERACILLIN-TAZO 4.5GM 100 ML IV SCH ×4 (00:08→17:48)
[2019-04-24] MEDS: LORazepam 0.5 MG TAB PO PRN ×2 (01:43→19:16)
[2019-04-24] MEDS: HYDROmorphone HCL 2 MG/ML VL IV PRN ×8 (02:39→21:50)
[2019-04-24] MEDS: SODIUM CHLORIDE 0.9% 1,000 ML IV SCH (04:05)
[2019-04-24 05:00] VITALS: BP 108/64
[2019-04-24 05:54] LABS: Albumin 1.7 g/dL (3.4-5.0); Calcium 7.4 mg/dL (8.5-10.1); Potassium 3.1 mmol/L (3.5-5.1)
[2019-04-24 06:02] LABS: BUN/Creatinine Ratio 13.2; Bilirubin, Total 0.5 mg/dL (0.2-1.0); Phosphorus 3.8 mg/dL (2.5-4.90); Pre Albumin 3.1 mg/dL (20.0-40.0); Total Protein 4.4 g/dL (6.4-8.2)
[2019-04-24] MEDS: VANCOMYCIN 1,250 MG in D5W 5% 250 ML IV SCH ×3 (06:22→22:30)
--- NOTE | 2019-04-24 06:30 | NUR ---
Emptied 50 ml of clear light yellow fluid from intraperitoneal drain.
[2019-04-24 06:32] LABS: Basophils # (auto) 0 uL; Basophils % (auto) 0.1 % (0.0-2.0); Eosinophils # (auto) 0.3 uL; Eosinophils % (auto) 1.9 % (0.0-7.0); Hematocrit 27.5 % (36.0-46.0); Hemoglobin 9.2 g/dL (12.2-16.2); Lymphocytes % (auto) 6.5 % (10.0-50.0); Mean Corpuscular Hgb Conc. 33.4 g/dL (32.0-36.0); Mean Corpuscular Volume 83.9 fL (80.0-100.0); Monocytes # (auto) 0.5 uL; Monocytes % (auto) 3.3 % (0.0-12.0); Neutrophils # (auto) 13.7 uL; Neutrophils % (auto) 88.2 % (37.0-80.0); Platelet Count (auto) 446 10^3/uL (140-450); Red Blood Cells 3.28 10^6/uL (4.0-5.20); Red Cell Distribution Width 14.8 % (11.8-14.3); White Blood Cell 15.6 10^3/uL (4.4-10.8)
--- NOTE | 2019-04-24 08:00 | NUR ---
Opening Shift Note Assumed care of patient, awake and alert. No S/S of distress/SOB or pain. Instructed on POC and to call for assist PRN, will continue to monitor for changes Q1hr and PRN.
[2019-04-24 08:53] VITALS: BP 106/61
--- NOTE | 2019-04-24 09:00 | NUR ---
Dressing to abdominal incision changed, incision stefanie intact. Covered wound with betadine soaked kerlix and covered with abdominal pads. Secured with Smith strap, patient tolerated well
[2019-04-24] MEDS: MINERAL OIL 30 ML GT SCH ×2 (09:19→22:31)
[2019-04-24] MEDS: ACETAMINOPHEN/CODEINE#3 (300/30mg) TAB PO PRN ×3 (09:19→20:27)
[2019-04-24] MEDS: SODIUM CHLOR 0.9% PF (SALINE LOCK) 10ML VIAL/SYR IV SCH ×2 (09:20→22:31)
[2019-04-24] MEDS: POTASSIUM CHL 20MEQ/100ML 100 ML IV SCH ×2 (10:07→13:06)
[2019-04-24] MEDS: InsuLIN REG 1unit/0.01ml Soln (100units/ml) SC SCH ×2 (11:36→18:00)
[2019-04-24] MEDS: ACCU-CHEK COMFORT CURVE STRIP VI SCH ×2 (11:37→18:01)
[2019-04-24] MEDS ORDERED: DEXTROSE (50%) 50ML SYRG IV SCH (12:00)
[2019-04-24 13:00] VITALS: BP 106/63
--- NOTE | 2019-04-24 13:00 | NUR ---
Patient has been ambulated 3-4 times, tolerated well.
--- NOTE | 2019-04-24 14:02 | NUR ---
Nutrition Follow-up Notes (New TPN) Wt.: 94.8 kg based on bed scale as of 04/22/19 Pt's with family member at bedside, watching TV, denies discomfort except for mild abdominal pain during rounds this morning. Pt's currently on Clear Liquid diet with poor PO intake aeb no record of food intake in last 2 days, however tolerating oral diet, per pt. Pt's also on Clinimix @ 42 ml/hr providing 510 kcal, 340 NPCs and 42.5 gms pro. Pt with inadequate PN support d/t low initiation rate delivery of diluted formula aeb current PN infusion meets 22% to 28% of est caloric needs and 31% to 39% of est protein needs. Encouraged pt to increase food intake through small frequent meals as tolerated. Discussed importance/benefits of PN support r/t current medical condition and she verbalized understanding. Noted pt's to receive tonight TPN @ 43 ml/hr to provide 1150 kcal, 50 gms pro, 910 NPCs and 9% Fat. Est. Needs: 1800 kcal to 2250 kcal (20-25 kcal/kgBW), 108 gms to 135 gms pro (1.2-1.5 gms/kgBW reassessed r/t severe hypoalbuminemia). Will continue to monitor pertinent labs and reassess nutrient need prn Labs: Na 133 L, K 3.1 L, Ca 7.4 L, Cr 0.53 L, AST 94 H, ALP 196 H, Tpro 4.4 L, Alb 11.7 L, Prealb 3.1 L, Trig 181 H, Skin: Estuardo scale 21, low risk, pt's anterior medial abdomen incision dry and intact per correction officer reformatory GI: Pt had 1 BM 04/20/19 correction officer reformatory. PES: Increased nutrient needs r/t altered GI functions aeb Intractable abdominal pain, SBO, s/p surgery, mild hypoalbuminemia, NPO. Altered nutrition related lab values r/t current/chronic medical condition aeb hyperglycemia, hyperchloremia, elev. lipid panels, hypocalcemia and mild hypoalbuminemia Obesity r/t excessive PO intake aeb 141% IBW, BMI 30.2 kg/m2 and increased body adiposity Will continue to monitor PO intake, PN tolerance, skin status, pertinent labs and weight trend. F/u in 2 to 3 days. Rec.: 1.) If pt remains on Clear Liquid diet, continue PN support with gradual increase on calories and protein to meet at least 75% of est nutrient needs. 2.) Continue close supervision with meals. 3.) Advance gradually oral diet (Soft Low Fat) when medically appropriate. 4.) Refer to RD for further nutrition educ. and weight monitoring upon discharge. 5.) Continue current plan of care.
--- NOTE | 2019-04-24 16:13 | NUR ---
Otero catheter dc'd Order to discontinue otero catheter. Otero dc'd with clean technique following deflation of balloon. Patient tolerated well with no complaints of pain. Continue care.
[2019-04-24 17:00] VITALS: BP 109/63
--- NOTE | 2019-04-24 17:00 | NUR ---
Patient urinated clear yellow urine.
[2019-04-24] MEDS ORDERED: TPN PER PHARMACY IV NR ×10 (20:00)
[2019-04-24 21:50] VITALS: BP 117/65
[2019-04-24] MEDS: KETOROLAC TROMETH 30 MG/ML 1ML VIAL IV PRN (22:29)
[2019-04-25] MEDS: PIPERACILLIN-TAZO 4.5GM 100 ML IV SCH ×2 (01:03→05:04)
[2019-04-25] MEDS: HYDROmorphone HCL 2 MG/ML VL IV PRN ×7 (01:50→23:00)
[2019-04-25] MEDS: ACETAMINOPHEN/CODEINE#3 (300/30mg) TAB PO PRN ×4 (02:58→20:59)
--- NOTE | 2019-04-25 03:15 | NUR ---
PT'S ABD DRESSING CHANGED;PT OOB TO BEDSIDE COMMODE WHILE LINEN AND GOWN CHANGE ACTIVE.BACK IN BED;TOLERATED WELL.
[2019-04-25] MEDS: KETOROLAC TROMETH 30 MG/ML 1ML VIAL IV PRN ×3 (04:00→18:21)
[2019-04-25] MEDS: LORazepam 0.5 MG TAB PO PRN ×2 (04:00→17:26)
[2019-04-25 05:02] VITALS: BP 107/63
[2019-04-25] MEDS: VANCOMYCIN 1,250 MG in D5W 5% 250 ML IV SCH (05:05)
[2019-04-25] MEDS: ACCU-CHEK COMFORT CURVE STRIP VI SCH ×5 (06:00→23:58)
[2019-04-25] MEDS: InsuLIN REG 1unit/0.01ml Soln (100units/ml) SC SCH ×5 (06:00→23:57)
--- NOTE | 2019-04-25 06:59 | NUR ---
PHONE CALL PLACED TO LAB REGARDING THE NEED FOR VIALS TO DRAW FROM PICC. NO ANSWER. WILL MAKE DAYSHIFT AWARE.
--- NOTE | 2019-04-25 07:30 | NUR ---
Opening Shift Note Assuming care of patient at this time. Patient is awake and alert. Patient complains of pain 7/10 at this time. Patient shows no signs or symptoms of distress or shortness of breath. Bed is locked and lowered with side rails up x2. Instructed patient on the plan of care for today and to call for assistance as needed. Call light within reach. Will continue to round hourly and as needed.
[2019-04-25 09:00] VITALS: BP 115/67
[2019-04-25 09:50] LABS: Magnesium 2.9 mg/dL (1.6-2.6); Phosphorus 6.2 mg/dL (2.5-4.90)
--- NOTE | 2019-04-25 10:05 | NUR ---
RE: critical labs Received critical labs from chemistry and the possibility of contamination. Message given to Nieves, primary RN. Nieves verbalized understanding.
[2019-04-25] MEDS: SODIUM CHLOR 0.9% PF (SALINE LOCK) 10ML VIAL/SYR IV SCH ×2 (10:12→22:19)
[2019-04-25] MEDS: MINERAL OIL 30 ML GT SCH ×2 (11:46→23:49)
[2019-04-25 13:00] VITALS: BP 105/59
[2019-04-25 13:20] LABS: Phosphorus 3.4 mg/dL (2.5-4.90)
[2019-04-25] MEDS ORDERED: FUROSEMIDE 40 MG/4 ML VIAL IV ONE (13:30)
[2019-04-25] MEDS ORDERED: POTASSIUM CHL 20 Meq TABLET PO ONE (13:30)
[2019-04-25 13:43] LABS: Potassium 3.4 mmol/L (3.5-5.1)
[2019-04-25 13:44] LABS: Albumin 1.7 g/dL (3.4-5.0); BUN/Creatinine Ratio 8.7; Bilirubin, Total 0.3 mg/dL (0.2-1.0); Calcium 7.6 mg/dL (8.5-10.1); Total Protein 5.1 g/dL (6.4-8.2)
[2019-04-25] MEDS ORDERED: ALBUMIN 25% 100 ML IV ONE (14:00)
[2019-04-25] MEDS: LEVOFLOXACIN 500MG 100 ML IV SCH (14:39)
--- NOTE | 2019-04-25 15:00 | NUR ---
Wound Care Dressings changed to patient's surgical incision according to doctor's orders. No distress noted at this time.
--- NOTE | 2019-04-25 16:01 | NUR ---
Wound Photos Patient has a new area of concern to sacral area, what appears to be moisture associated dermatitis. Pictures taken at this time.
[2019-04-25 16:30] VITALS: BP 104/55
--- NOTE | 2019-04-25 18:59 | NUR ---
Drain Emptied patient's drains at this time. Patient's peritoneal drain had 60mL of serosanguineous drainage. Patient's subcutaneous drain has 25mL of drainage. No distress noted at this time.
--- NOTE | 2019-04-25 19:00 | NUR ---
Abdomen Ultrasound Patient needs ultrasound in order to rule out ascites per equipment technician. Engineer Process would need to remove Smith straps device on one side in order to do ultrasound. Called materials who states, they do not carry or know about device. Notified automotive fuel systems converter, who notified Field Sales Representative that need for a new Smith straps device before removal of current device. Per charge histotechnologist, house rn aware and will look into it. As of the end of shift, no new device has been provided. shift supervisor rn RN aware.
--- NOTE | 2019-04-25 19:10 | NUR ---
received pt from day rn poc reviewed
--- NOTE | 2019-04-25 19:24 | NUR ---
Closing Shift Note Patient resting in bed. No distress noted. Will endorse care to the shift stacker RN.
--- NOTE | 2019-04-25 19:24 | NUR ---
Attending physician Patient is requesting to have Dr. Fortune removed from her service. Patient wants another attending physician to see her during her hospital stay.
--- NOTE | 2019-04-25 19:30 | NUR ---
received pt from day rn poc reviewed
[2019-04-25] MEDS ORDERED: TPN PER PHARMACY IV NR ×11 (20:00)
[2019-04-25 22:00] VITALS: BP 114/70
--- NOTE | 2019-04-25 22:45 | NUR ---
abdominal dressing changed as ordered with sterile precautions, pt tolerated well
--- NOTE | 2019-04-25 23:00 | NUR ---
verma tube irrigated as ordered
--- NOTE | 2019-04-26 00:48 | NUR ---
pt c/o headach 11/04 medicated as ordered
--- NOTE | 2019-04-26 01:02 | NUR ---
resting comfortable with hob up resp even and unlabored, call light within reach
[2019-04-26] MEDS: ACETAMINOPHEN/CODEINE#3 (300/30mg) TAB PO PRN ×4 (01:56→21:37)
[2019-04-26] MEDS: HYDROmorphone HCL 2 MG/ML VL IV PRN ×7 (02:45→22:10)
--- NOTE | 2019-04-26 02:51 | NUR ---
awoke c/o abd pain 03/06 medicated as ordered
[2019-04-26] MEDS: InsuLIN REG 1unit/0.01ml Soln (100units/ml) SC SCH ×4 (06:00→21:18)
[2019-04-26 06:01] VITALS: BP 116/70
--- NOTE | 2019-04-26 06:10 | NUR ---
awoke c/o abd pain 03/06 medicated asordered, pt c/o bilateral feet swelling, plus 3 non pitting edema,
--- NOTE | 2019-04-26 06:37 | NUR ---
intraperitoneal drain 55 ml clear pink secretion output , 30 ml serosangeous out put
[2019-04-26 06:50] LABS: Hemoglobin 8.9 g/dL (12.2-16.2); White Blood Cell 11.3 10^3/uL (4.4-10.8)
[2019-04-26 06:51] LABS: Hematocrit 25.7 % (36.0-46.0); Mean Corpuscular Hemoglobin 28.8 pg (28.0-32.0); Mean Corpuscular Hgb Conc. 34.8 g/dL (32.0-36.0); Mean Corpuscular Volume 82.8 fL (80.0-100.0); Platelet Count (auto) 577 10^3/uL (140-450); Red Blood Cells 3.11 10^6/uL (4.0-5.20); Red Cell Distribution Width 15.2 % (11.8-14.3)
[2019-04-26] MEDS: ACCU-CHEK COMFORT CURVE STRIP VI SCH ×4 (06:51→21:18)
[2019-04-26 06:55] LABS: Basophils % (manual) 0 (0.0-2.0); Blast Cells 0; Promyelocytes % 0; Reactive Lymphocytes 0
[2019-04-26 07:08] LABS: Albumin 1.6 g/dL (3.4-5.0); BUN/Creatinine Ratio 10.4; Calcium 7.9 mg/dL (8.5-10.1); Magnesium 2.3 mg/dL (1.6-2.6); Potassium 5.1 mmol/L (3.5-5.1)
[2019-04-26 07:10] LABS: Bilirubin, Total 0.5 mg/dL (0.2-1.0)
--- NOTE | 2019-04-26 07:10 | NUR ---
report given to am nurse poc reviewed
--- NOTE | 2019-04-26 07:20 | NUR ---
at bedside Dr. Palacios at bedside. Patient concerned about pain to incision. Smith straps device opened and surgeon examined incision and surrounding area. No new orders given at this time.
--- NOTE | 2019-04-26 07:30 | NUR ---
Opening Shift Note Assuming care of patient at this time. Patient is awake and alert. Patient complains of pain 6/10 at this time. Patient shows no signs or symptoms of distress or shortness of breath. Bed is locked and lowered with side rails up x2. Instructed patient on the plan of care for today and to call for assistance as needed. Call light within reach. Will continue to round hourly and as needed.
--- NOTE | 2019-04-26 07:30 | NUR ---
Closing Shift Note Patient resting in bed. No distress noted. Will endorse care to the fast food shift lead [place]. Addendum: 04/27/19 at 0820 by GILSON GE RN RN note was for 1929
[2019-04-26 07:31] LABS: Phosphorus 4.3 mg/dL (2.5-4.90)
[2019-04-26 07:40] LABS: Band Neutrophils % (manual) 1; Eosinophils % (manual) 6 (0-7); Lymphocytes % (manual) 23 (10.0-50.0); Metamyelocytes % 1; Monocytes % (manual) 3 (0-12); Myelocytes % 1
[2019-04-26 09:00] VITALS: BP 111/57
--- NOTE | 2019-04-26 09:00 | NUR ---
Wound Care Dressings changed to patient's surgical incision according to doctor's orders. No distress noted at this time.
[2019-04-26] MEDS: MINERAL OIL 30 ML GT SCH ×2 (10:31→21:18)
[2019-04-26] MEDS: SODIUM CHLOR 0.9% PF (SALINE LOCK) 10ML VIAL/SYR IV SCH (10:32)
--- NOTE | 2019-04-26 11:10 | NUR ---
WOUND CARE NOTE: IN TO SEE PATIENT AT THIS TIME PER WOUND CARE CONSULT REQUEST. PATIENT NOTED UPON ASSESSMENT TO HAVE GLUTEAL WOUND. WOUND PHOTO TAKEN AT THAT TIME BY BEDSIDE NURSE FOR REFERENCE, WOUND CONSULT ORDERED. PATIENT ADMITTED TO [facility] WITH DIAGNOSIS OF SBO. PATIENT IS S/P MAJOR ABDOMINAL SURGERY, AND I&D SURGERY DURING THIS HOSPITALIZATION. PATIENT HAS CURRENT SANTA SCORE OF 22. SHE IS FULLY AMBULATORY, CAN SELF TURN/REPOSITION SELF. PATIENT IS NOTED TO HAVE AN INTACT ABRASION TO THE RIGHT/LEFT INTRAGLUTEAL SKIN. ABRASION IS RED, INTACT SKIN NOTED. NO DRAINAGE NOTED. PATIENT WOULD BENEFIT FROM BID/PRN APPLICATION WITH ZGUARD TO GLUTEAL ABRASION. SKIN/WOUND CARE PLAN IMPLEMENTED. NO FURTHER WOUND CARE MONITORING IS NEEDED FOR THIS WOUND AT THIS TIME. Addendum: 04/26/19 at 1629 by Amanda Holman RN Amended: Links added.
[2019-04-26] MEDS: LEVOFLOXACIN 500MG 100 ML IV SCH (12:00)
[2019-04-26 13:00] VITALS: BP 113/61
[2019-04-26] MEDS: KETOROLAC TROMETH 30 MG/ML 1ML VIAL IV PRN ×2 (13:53→20:06)
[2019-04-26 17:00] VITALS: BP 113/73
[2019-04-26] MEDS ORDERED: ceFAZolin 1GM/50ML 50 ML IV SCH (17:00)
[2019-04-26] MEDS ORDERED: SODIUM CHL 0.9% 50 ML ICC SCH (17:00)
[2019-04-26] MEDS ORDERED: ceFAZolin 1GM VL IR SCH (17:00)
--- NOTE | 2019-04-26 17:00 | NUR ---
IV removal IV DC'd with clean sterile technique, catheter fully intact. Pressure dressing applied to site. Patient tolerated well.
--- NOTE | 2019-04-26 17:13 | NUR ---
Drain Output Emptied patient's drains at this time. Patient's peritoneal drain had 15mL of serosanguineous drainage. Patient's subcutaneous drain has 20 mL of drainage. No distress noted at this time.
[2019-04-26] MEDS: SODIUM CHL 0.9% ICC SCH ×2 (17:25→21:17)
[2019-04-26] MEDS: CEFAZOLIN ICC SCH ×2 (17:25→21:17)
--- NOTE | 2019-04-26 19:30 | NUR ---
Closing Shift Note Patient resting in bed. No distress noted. Will endorse care to the night supervisor RN.
[2019-04-26 20:00] VITALS: BP 105/59
[2019-04-26] MEDS ORDERED: TPN PER PHARMACY IV NR ×8 (20:00)
[2019-04-26] MEDS: LORazepam 0.5 MG TAB PO PRN (20:06)
[2019-04-26 21:44] VITALS: BP 109/67
--- NOTE | 2019-04-26 23:01 | NUR ---
PT' VILLELA DRAIN IRRIGATED WITH MINERAL OIL;SUBCUTANEOUS DRAIN IRRIGATED WITH ANCEF. PT TOLERATED WELL.
[2019-04-27] MEDS: HYDROmorphone HCL 2 MG/ML VL IV PRN ×6 (01:32→23:30)
[2019-04-27] MEDS: KETOROLAC TROMETH 30 MG/ML 1ML VIAL IV PRN (02:43)
[2019-04-27] MEDS: LORazepam 0.5 MG TAB PO PRN ×2 (02:43→22:02)
--- NOTE | 2019-04-27 04:30 | NUR ---
PT'S ABDOMINAL DRESSING CHANGED USING STERILE TECHNIQUE.PT TOLERATED WELL.
[2019-04-27] MEDS: SODIUM CHLOR 0.9% PF (SALINE LOCK) 10ML VIAL/SYR IV SCH ×3 (04:37→21:54)
[2019-04-27 05:26] VITALS: BP 113/60
[2019-04-27] MEDS: SODIUM CHL 0.9% ICC SCH ×3 (05:48→21:54)
[2019-04-27] MEDS: CEFAZOLIN ICC SCH ×3 (05:48→21:54)
[2019-04-27] MEDS: ACCU-CHEK COMFORT CURVE STRIP VI SCH ×4 (06:00→23:42)
[2019-04-27] MEDS: InsuLIN REG 1unit/0.01ml Soln (100units/ml) SC SCH ×4 (06:00→23:41)
[2019-04-27 07:16] LABS: Basophils # (auto) 0.1 uL; Eosinophils # (auto) 0.3 uL
[2019-04-27 07:21] LABS: Basophils % (auto) 0.6 % (0.0-2.0); Eosinophils % (auto) 2.8 % (0.0-7.0); Hematocrit 25.8 % (36.0-46.0); Hemoglobin 8.4 g/dL (12.2-16.2); Lymphocytes # (auto) 1.5 uL; Lymphocytes % (auto) 15.3 % (10.0-50.0); Mean Corpuscular Hemoglobin 29.5 pg (28.0-32.0); Mean Corpuscular Hgb Conc. 32.7 g/dL (32.0-36.0); Mean Corpuscular Volume 90.2 fL (80.0-100.0); Monocytes # (auto) 0.9 uL; Monocytes % (auto) 9.5 % (0.0-12.0); Neutrophils # (auto) 7.2 uL; Neutrophils % (auto) 71.8 % (37.0-80.0); Nucleated Red Blood Cells % 0.1 %; Platelet Count (auto) 619 10^3/uL (140-450); Red Blood Cells 2.86 10^6/uL (4.0-5.20); Red Cell Distribution Width 15.4 % (11.8-14.3)
[2019-04-27 09:00] VITALS: BP 102/58
[2019-04-27] MEDS: MINERAL OIL 30 ML GT SCH ×2 (09:56→21:53)
[2019-04-27] MEDS: LEVOFLOXACIN 500MG 100 ML IV SCH (09:56)
[2019-04-27] MEDS ORDERED: HYDROmorphone HCL 2 MG/ML VL IV PRN (11:30)
[2019-04-27 12:53] LABS: Albumin 1.9 g/dL (3.4-5.0); Potassium 4.6 mmol/L (3.5-5.1)
[2019-04-27 12:56] VITALS: BP 113/60
[2019-04-27 12:56] LABS: BUN/Creatinine Ratio 9.6; Bilirubin, Total 0.2 mg/dL (0.2-1.0); Phosphorus 3.7 mg/dL (2.5-4.90); Total Protein 5.3 g/dL (6.4-8.2)
--- NOTE | 2019-04-27 13:19 | NUR ---
page to Hospitalist Page to Ta Lew NP, at this time. Patient is complaining of pain that was unrelieved by the decrease in Dilaudid. Awaiting callback.
[2019-04-27] MEDS ORDERED: HYDROmorphone HCL 2 MG/ML VL IV ONE (14:00)
--- NOTE | 2019-04-27 14:00 | NUR ---
Dilaudid Dose Provider decreased patient's Dilaudid dose. After administration, patient is crying that she is in an intolerable amount of pain. Notified Ta Lew NP. New orders given.
--- NOTE | 2019-04-27 14:15 | NUR ---
Wound Care/ Irrigation Wound care done to patient's incision at this time according to doctor's orders. Irrigation also done to patient's subcutaneous drain according to doctor's orders. Patient tolerated well. No distress noted.
--- NOTE | 2019-04-27 16:41 | NUR ---
Nutrition Follow-up Notes (New TPN) Wt.: 96 kg based on bed scale as of 04/22/19 Pt's with no family member at bedside, watching TV, denies discomfort except for mild abdominal pain during rounds this morning. Pt's currently on Clear Liquid diet with improved PO intake aeb 100% x 1 per RN doc. Pt's also on Clinimix @ 42 ml/hr providing 510 kcal, 340 NPCs and 42.5 gms pro. Pt with inadequate PN support d/t low initiation rate delivery of diluted formula aeb current PN infusion meets 22% to 28% of est caloric needs and 31% to 39% of est protein needs. Pt was educated about an improved diet once medically appropriate and as tolerated, and verbalized understanding. Est. Needs: 1800 kcal to 2250 kcal (20-25 kcal/kgBW), 108 gms to 135 gms pro (1.2-1.5 gms/kgBW reassessed r/t severe hypoalbuminemia). Will continue to monitor pertinent labs and reassess nutrient need prn Labs: Na 133 L, K 3.1 L, Ca 7.9 L, Cr 0.53 L, AST 94 H, ALP 196 H, Tpro 4.4 L, Alb 1.6L, Prealb 3.1 L, Trig 181 H, Skin: Estuardo scale 23, low risk, pt's anterior medial abdomen incision dry and intact per hide mill man GI: Pt had 1 BM 04/20/19 hide mill man. Pt still has not had a BM since 04/20, but is walking and has been able to pass gas. PES: Increased nutrient needs r/t altered GI functions aeb Intractable abdominal pain, SBO, s/p surgery, mild hypoalbuminemia, NPO. Altered nutrition related lab values r/t current/chronic medical condition aeb hyperglycemia, hyperchloremia, elev. lipid panels, hypocalcemia and mild hypoalbuminemia Obesity r/t excessive PO intake aeb 141% IBW, BMI 30.2 kg/m2 and increased body adiposity Will continue to monitor PO intake, PN tolerance, skin status, pertinent labs and weight trend. F/u in 2 to 3 days. Rec.: 1.) If pt remains on Clear Liquid diet, continue PN support with gradual increase on calories and protein to meet at least 75% of est nutrient needs. 2.) Continue close supervision with meals. 3.) Advance gradually oral diet (Soft Low Fat) when medically appropriate. 4.) Refer to RD for further nutrition educ. and weight monitoring upon discharge. 5.) Continue current plan of care.
[2019-04-27 17:00] VITALS: BP 115/67
--- NOTE | 2019-04-27 17:00 | NUR ---
Bowel Movement Patient states she had a bowel movement. EMERGENCY VETERINARY TECHNICIANAlayna, confirms that patient had a bowel movement at this time.
--- NOTE | 2019-04-27 19:30 | NUR ---
Bowel Movement Per patient, she had another bowel movement. This bowel movement was not visualized by the RN.
--- NOTE | 2019-04-27 19:47 | NUR ---
Leak in patient's subcutaneous drain While showing deli/bakery associate the drainage system. A leak was visualized unto patient's bed. Upon inspection, a hole is visualized close to subcutaneous drain bulb. Spoke with Dr. Palacios. Dr. Palacios aware, states he will look at it tomorrow. Have applied tape and an absorbent pad around tubing in order to prevent leakage onto patient's bed. Drain is still draining serosanguineous drainage.Patient shows no signs or symptoms of distress.
--- NOTE | 2019-04-27 19:50 | NUR ---
Drain Output Subcutaneous drain has 15 mL of serosanguineous drainage. Peritoneal drain has 20 mL of serosanguineous drainage.
--- NOTE | 2019-04-27 19:55 | NUR ---
Opening Shift Note Assumed care of patient, awake and alert. No S/S of distress/SOB or pain. Insructed on POC and to callfor assist PRN, will continue to monitor for changes Q1hr and PRN. Fall and safety precautions in place. Call light within reach.
--- NOTE | 2019-04-27 19:56 | NUR ---
Closing Shift Note Patient resting in bed. Patient shows no signs or symptoms of distress or pain. Report given. Will endorse care to the computer numerical control operator RN.
[2019-04-27] MEDS ORDERED: TPN PER PHARMACY IV NR ×9 (20:00)
[2019-04-27] MEDS: ACETAMINOPHEN/CODEINE#3 (300/30mg) TAB PO PRN (21:53)
[2019-04-27 22:00] VITALS: BP 118/75
--- NOTE | 2019-04-27 22:00 | NUR ---
TEMP Patient's temp 99.4 oral. Cooling measures applied at this time. Will continue to monitor
--- NOTE | 2019-04-27 23:00 | NUR ---
TEMP Patient's temp rechecked at this time; 99 oral. Cooling measures continued. Will continue to monitor
[2019-04-28] MEDS: HYDROmorphone HCL 2 MG/ML VL IV PRN ×7 (02:57→22:12)
--- NOTE | 2019-04-28 03:00 | NUR ---
WOUND CARE Dressing to abdomen changed per MD order. Patient tolerated well. Will continue to monitor
[2019-04-28 04:49] VITALS: BP 107/61
[2019-04-28] MEDS: InsuLIN REG 1unit/0.01ml Soln (100units/ml) SC SCH ×2 (05:28→12:00)
[2019-04-28] MEDS: CEFAZOLIN ICC SCH ×3 (05:28→22:00)
[2019-04-28] MEDS: ACCU-CHEK COMFORT CURVE STRIP VI SCH ×2 (05:28→12:28)
[2019-04-28] MEDS: SODIUM CHL 0.9% ICC SCH ×3 (05:28→22:00)
--- NOTE | 2019-04-28 06:00 | NUR ---
OUTPUT Total output from intraperitoneal drain 5ml (see interventions under "drainage, gastric amount"). Will continue to monitor
[2019-04-28 06:52] LABS: Eosinophils # (auto) 0.3 uL; Hemoglobin 9.1 g/dL (12.2-16.2); Neutrophils # (auto) 10.4 uL; Platelet Count (auto) 725 10^3/uL (140-450)
[2019-04-28 06:55] LABS: Basophils # (auto) 0.2 uL; Basophils % (auto) 1.2 % (0.0-2.0); Eosinophils % (auto) 2.4 % (0.0-7.0); Hematocrit 26.3 % (36.0-46.0); Lymphocytes # (auto) 1.9 uL; Mean Corpuscular Hemoglobin 29.1 pg (28.0-32.0); Mean Corpuscular Hgb Conc. 34.5 g/dL (32.0-36.0); Mean Corpuscular Volume 84.2 fL (80.0-100.0); Monocytes % (auto) 7.5 % (0.0-12.0); Neutrophils % (auto) 74.9 % (37.0-80.0); Red Blood Cells 3.12 10^6/uL (4.0-5.20); White Blood Cell 13.9 10^3/uL (4.4-10.8)
[2019-04-28 07:08] LABS: Albumin 1.9 g/dL (3.4-5.0); BUN/Creatinine Ratio 11.7; Bilirubin, Total 0.3 mg/dL (0.2-1.0); Magnesium 2.1 mg/dL (1.6-2.6); Phosphorus 4.1 mg/dL (2.5-4.90); Total Protein 5.4 g/dL (6.4-8.2)
--- NOTE | 2019-04-28 07:40 | NUR ---
CLOSING SHIFT Endorsed care to Kimberly Lopez RN
--- NOTE | 2019-04-28 08:00 | NUR ---
Opening Shift Note Assumed care of patient, awake and alert. No S/S of distress/SOB or pain. Instructed on POC and to call for assist PRN, call light within reach and bed in locked and lowest position. Will continue to monitor for changes Q1hr and PRN.
[2019-04-28 09:00] VITALS: BP 109/59
[2019-04-28] MEDS: LEVOFLOXACIN 500MG 100 ML IV SCH (09:59)
[2019-04-28] MEDS: SODIUM CHLOR 0.9% PF (SALINE LOCK) 10ML VIAL/SYR IV SCH ×2 (09:59→22:00)
[2019-04-28] MEDS: MINERAL OIL 30 ML GT SCH ×2 (11:30→22:43)
--- NOTE | 2019-04-28 12:45 | NUR ---
Spoke to Dr. Palacios, he wants the patient weaned from TPN today. Per pharmacy, I will cut the dose in half every 2 hours until reaching 16 ml/hr. At that time I will run for 2 hours and D/C.
[2019-04-28 13:00] VITALS: BP 108/64
--- NOTE | 2019-04-28 13:27 | NUR ---
Spoke to Dr. Palacios and received clarification to have patient weaned off TPN today. Orders carried out.
[2019-04-28] MEDS ORDERED: THIAMINE HCL 100 MG TAB PO ONE (13:45)
[2019-04-28] MEDS ORDERED: POTASSIUM CHL 20 Meq TABLET PO ONE (13:45)
[2019-04-28] MEDS ORDERED: FUROSEMIDE 40 MG/4 ML VIAL IV ONE (13:45)
[2019-04-28 14:43] LABS: Folate (Folic Acid) 5.54 ng/mL (5.38-24)
--- NOTE | 2019-04-28 16:30 | NUR ---
Dressing Change Wound care done to patient's incision with NS as per Doctors order. Patient tolerated well. No distress noted.
[2019-04-28 17:00] VITALS: BP 116/75
[2019-04-28] MEDS: LORazepam 0.5 MG TAB PO PRN (18:07)
--- NOTE | 2019-04-28 18:49 | NUR ---
PICC REMOVAL Removed PICC line per Doctor order and sent tip of PICC to lab for culture
--- NOTE | 2019-04-28 19:03 | NUR ---
DRAIN OUTPUT intraperitoneal drain 10 ml clear pink secretion output , Subcutaneous drain 55 ml serosangeous with sediment output
--- NOTE | 2019-04-28 19:45 | NUR ---
Opening Shift Note Assumed care of patient, awake and alert, oriented x 4, follows direction. On room air with even and unlabored respirations, no S/S of distress or SOB. Abd dressing clean, dry, and intact. Abd drains x 3 secured and intact. Patient turns independently in bed. IV intact and patent. Instructed on POC and to callfor assist PRN, will continue to monitor for changes Q1hr and PRN.
[2019-04-28] MEDS ORDERED: TPN PER PHARMACY IV NR ×9 (20:00)
--- NOTE | 2019-04-28 20:30 | NUR ---
Lab called RE: PICC culture per pharmaceutical laboratory technician, PICC culture "fell into hole of tubing system...lost," unable to process. auditor in charge Anny informed.
[2019-04-28 22:00] VITALS: BP 104/61
--- NOTE | 2019-04-28 22:30 | NUR ---
Dressing Change Wound care done to patient's abd incision with NS as per Doctors order. Patient tolerated well. No distress noted.
[2019-04-29] MEDS: HYDROmorphone HCL 2 MG/ML VL IV PRN ×8 (01:44→23:31)
[2019-04-29] MEDS: CEFAZOLIN ICC SCH (04:57)
[2019-04-29] MEDS: SODIUM CHL 0.9% ICC SCH (04:57)
[2019-04-29 05:08] VITALS: BP 112/61
--- NOTE | 2019-04-29 07:00 | NUR ---
DRAIN OUTPUT intraperitoneal drain emptied 5 ml serosanguineous drainage. Subcutaneous drain 25 ml serosanguineous drainage.
--- NOTE | 2019-04-29 07:05 | NUR ---
Closing note patient resting in bed with even and unlabored respirations, no s/s of distress. Endorsed care to day shift RN.
[2019-04-29 08:00] VITALS: BP 120/63
--- NOTE | 2019-04-29 08:00 | NUR ---
OPENING SHIFT NOTE ASSUMED CARE OF PT. PT IS AWAKE AND ALERT X4. NO SOB OR SIGNS OF DISTRESS NOTED. DILAUDID PRN ADMINISTERED FOR PAIN PER DR ORDERS. INSTRUCTED ON POC AND TO CALL FOR HELP PRN. BED IN LOWEST POSITION WITH SIDE RAILS UP X2. WILL CONTINUE TO MONITOR.
[2019-04-29] MEDS ORDERED: FUROSEMIDE 40 MG/4 ML VIAL IV ONE (10:00)
[2019-04-29] MEDS ORDERED: FUROSEMIDE 40 MG/4 ML VIAL IV SCH (10:00)
[2019-04-29] MEDS ORDERED: POTASSIUM CHL 20 Meq TABLET PO ONE (10:00)
[2019-04-29] MEDS ORDERED: POTASSIUM CHL 20 Meq TABLET PO SCH (10:00)
[2019-04-29] MEDS ORDERED: ALBUMIN 25% 100 ML IV ONE (10:00)
[2019-04-29] MEDS ORDERED: THIAMINE HCL 100 MG TAB PO SCH (10:00)
[2019-04-29 10:37] LABS: Hemoglobin 9.6 g/dL (12.2-16.2)
[2019-04-29 10:40] LABS: Hematocrit 28.6 % (36.0-46.0); Mean Corpuscular Hemoglobin 28.3 pg (28.0-32.0); Mean Corpuscular Hgb Conc. 33.5 g/dL (32.0-36.0); Mean Corpuscular Volume 84.4 fL (80.0-100.0); Red Blood Cells 3.39 10^6/uL (4.0-5.20); Red Cell Distribution Width 15.1 % (11.8-14.3); White Blood Cell 14.8 10^3/uL (4.4-10.8)
[2019-04-29 10:50] LABS: Platelet Count (auto) 985 10^3/uL (140-450)
[2019-04-29 10:52] LABS: Basophils % (manual) 0 (0.0-2.0); Blast Cells 0; Eosinophils % (manual) 0 (0-7); Myelocytes % 0; Promyelocytes % 0; Reactive Lymphocytes 0
[2019-04-29] MEDS: LEVOFLOXACIN 500 MG TAB PO SCH (11:20)
[2019-04-29] MEDS: metroNIDAZOLE 500 MG TAB PO SCH ×3 (11:20→22:08)
[2019-04-29] MEDS: MINERAL OIL 30 ML GT SCH ×2 (11:21→22:08)
--- NOTE | 2019-04-29 11:30 | NUR ---
RECEIVED CRITICAL PLT LAB VALUE OF [phone]. WILL NOTIFY DR VARMA.
[2019-04-29 11:34] LABS: Band Neutrophils % (manual) 2; Lymphocytes % (manual) 20 (10.0-50.0); Metamyelocytes % 1; Monocytes % (manual) 5 (0-12)
[2019-04-29 12:00] VITALS: BP 128/72
[2019-04-29] MEDS: SODIUM CHLOR 0.9% PF (SALINE LOCK) 10ML VIAL/SYR IV SCH ×2 (13:19→22:00)
[2019-04-29] MEDS: LORazepam 0.5 MG TAB PO PRN (13:59)
--- NOTE | 2019-04-29 16:30 | NUR ---
Faxed [facility] for PT's outpatient records (cancer center), [facility]. (from one year ago). Fax number: [phone]. Awaiting response.
[2019-04-29 17:00] VITALS: BP 114/57
[2019-04-29] MEDS: IRON SUCROSE COMPLEX 200 MG in SODIUM CHL 0.9% 100 ML IV SCH (17:21)
[2019-04-29 17:55] LABS: % Iron Saturation 9.7 % (15-50)
--- NOTE | 2019-04-29 18:00 | NUR ---
ABDOMINAL DRESSING CHANGED PER DR ORDERS. PT TOLERATED WELL.
--- NOTE | 2019-04-29 18:15 | NUR ---
DRAIN OUTPUT Intraperitoneal drain emptied 10 ml serosanguineous drainage. Subcutaneous drain 30 ml serosanguineous drainage.
[2019-04-29 22:00] VITALS: BP 117/56
[2019-04-29] MEDS: FUROSEMIDE 40 MG/4 ML VIAL IV SCH (22:08)
[2019-04-29] MEDS: POTASSIUM CHL 20 Meq TABLET PO SCH (22:08)
--- NOTE | 2019-04-29 23:45 | NUR ---
Dressing Change Wound care done to patient's abd incision with NS as per Doctors order. Patient tolerated well. No distress noted.
[2019-04-30] MEDS: LORazepam 0.5 MG TAB PO PRN ×2 (01:02→16:43)
[2019-04-30] MEDS: HYDROmorphone HCL 2 MG/ML VL IV PRN ×8 (02:31→23:58)
[2019-04-30 05:00] VITALS: BP 117/59
[2019-04-30] MEDS: metroNIDAZOLE 500 MG TAB PO SCH ×3 (05:35→20:59)
--- NOTE | 2019-04-30 07:00 | NUR ---
DRAIN OUTPUT intraperitoneal drain emptied 5 ml serosanguineous drainage. Subcutaneous drain 30 ml serosanguineous drainage.
--- NOTE | 2019-04-30 07:05 | NUR ---
Closing note patient resting in bed with even and unlabored respirations, no s/s of distress. Endorsed care to day shift RN.
[2019-04-30 07:31] LABS: Hemoglobin 8.2 g/dL (12.2-16.2); Mean Corpuscular Volume 84.3 fL (80.0-100.0)
[2019-04-30 07:34] LABS: Hematocrit 24.1 % (36.0-46.0); Mean Corpuscular Hemoglobin 28.6 pg (28.0-32.0); Mean Corpuscular Hgb Conc. 33.9 g/dL (32.0-36.0); Red Blood Cells 2.85 10^6/uL (4.0-5.20); Red Cell Distribution Width 14.9 % (11.8-14.3); White Blood Cell 11.1 10^3/uL (4.4-10.8)
[2019-04-30 07:52] LABS: Platelet Count (auto) 904 10^3/uL (140-450)
[2019-04-30 07:54] LABS: Basophils % (manual) 0 (0.0-2.0); Blast Cells 0; Myelocytes % 0; Promyelocytes % 0; Reactive Lymphocytes 0
[2019-04-30 07:56] LABS: % Iron Saturation 61.6 % (15-50)
[2019-04-30 08:00] VITALS: BP 108/54
--- NOTE | 2019-04-30 08:00 | NUR ---
Opening Shift Note Assumed care of patient, awake and alert. No S/S of distress/SOB 5/10 abdominal incision pain. Drain tubes intact. Instructed on POC and to call for assist PRN, will continue to monitor for changes Q1hr and PRN.
[2019-04-30 08:14] LABS: Folate (Folic Acid) 9.64 ng/mL (5.38-24)
[2019-04-30 09:56] LABS: Band Neutrophils % (manual) 2; Eosinophils % (manual) 2 (0-7); Lymphocytes % (manual) 7 (10.0-50.0); Metamyelocytes % 1; Monocytes % (manual) 5 (0-12)
[2019-04-30] MEDS: LEVOFLOXACIN 500 MG TAB PO SCH (09:58)
[2019-04-30] MEDS: POTASSIUM CHL 20 Meq TABLET PO SCH ×2 (09:58→20:59)
[2019-04-30] MEDS: FUROSEMIDE 40 MG/4 ML VIAL IV SCH ×2 (09:58→20:59)
[2019-04-30] MEDS: SODIUM CHLOR 0.9% PF (SALINE LOCK) 10ML VIAL/SYR IV SCH ×2 (09:58→20:54)
--- NOTE | 2019-04-30 11:00 | NUR ---
Patient ambulating on the hallway with a walker, tolerated well.
--- NOTE | 2019-04-30 11:00 | NUR ---
Nutrition Follow-up Notes Wt.: 77.1 kg Pt's sleeping with no family by bedside. Pt's s/p explor lap (04/15/19), now advanced to regular diet off PN support with fair PO of avg 65% x 7 per RN doc Est. Needs: 1800 kcal to 2250 kcal (20-25 kcal/kgBW), 72 gms to 90 gms pro (0.8-1.0 gms/kgBW). Will continue to monitor pertinent labs and reassess nutrient need prn Labs: CA 8.0 L, ALB 1.9 L. Skin: Estuardo scale 19, low risk, pt's anterior medial abdomen incision dry and intact per machine technician GI: Pt had 1 BM yesterday machine technician. PES: Partially resolved: Increased nutrient needs r/t altered GI functions aeb Intractable abdominal pain, SBO, s/p surgery, mild hypoalbuminemia, NPO. Altered nutrition related lab values r/t current/chronic medical condition aeb hyperglycemia, hyperchloremia, elev. lipid panels, hypocalcemia and mild hypoalbuminemia Obesity r/t excessive PO intake aeb 141% IBW, BMI 30.2 kg/m2 and increased body adiposity Will continue to monitor PO intake, skin status, pertinent labs and weight trend. F/u in 3-5 days. Rec.: 1.) Consider Prostat 1 pkt BID. 2) consider ensure enlive 1 carton bid if PO is low. 3.) Refer to RD for further nutrition educ. and weight monitoring upon discharge. 4.) Continue current plan of care.
[2019-04-30] MEDS: IRON SUCROSE COMPLEX 200 MG in SODIUM CHL 0.9% 100 ML IV SCH (11:53)
[2019-04-30 12:00] VITALS: BP 116/67
[2019-04-30] MEDS: Ensure Enlive Chocolate 8oz Bottle PO SCH ×2 (12:00→19:06)
[2019-04-30 17:00] VITALS: BP 123/62
--- NOTE | 2019-04-30 19:45 | NUR ---
Opening Shift Note Assumed care of patient, awake and alert, oriented x 4, follows direction. On room air with even and unlabored respirations, no S/S of distress or SOB. Abd dressing clean, dry, and intact. Abd drains x 3 secured and intact. Patient turns independently in bed. IV intact and patent. Instructed on POC and to call for assist PRN, will continue to monitor for changes Q1hr and PRN.
--- NOTE | 2019-04-30 20:00 | NUR ---
Opening Shift Note Assumed care of patient, awake and alert, oriented x 4, follows direction. On room air with even and unlabored respirations, no S/S of distress or SOB. Abd wound clean and dry, open to air, verma tube secured and intact. Patient turns independently in bed. Patient ambulates with steady gait using walker. IV intact and patent. Bed low locked position with side rails up x 2 and call light within reach. Instructed on POC and to call for assist PRN, will continue to monitor for changes Q1hr and PRN. Addendum: 05/01/19 at 2048 by Lisa Anguiano RN RN WRONG DATE, DISREGARD THIS NOTE. NOTE IS FOR 05/01/19
--- NOTE | 2019-04-30 21:30 | NUR ---
Dressing Change Wound care done to patient's abd incision with NS as per Doctors order. Patient tolerated well. No distress noted.
[2019-04-30 22:00] VITALS: BP 122/77
[2019-05-01] MEDS: LORazepam 0.5 MG TAB PO PRN ×2 (02:17→11:18)
[2019-05-01] MEDS: HYDROmorphone HCL 2 MG/ML VL IV PRN ×6 (04:01→21:30)
[2019-05-01 04:49] VITALS: BP 107/62
[2019-05-01] MEDS: metroNIDAZOLE 500 MG TAB PO SCH ×3 (06:03→21:28)
[2019-05-01] MEDS: ACETAMINOPHEN/CODEINE#3 (300/30mg) TAB PO PRN (06:07)
--- NOTE | 2019-05-01 06:50 | NUR ---
DRAIN OUTPUT intraperitoneal drain has less than 5 ml of serosanguineous drainage. Subcutaneous drain 15 ml serosanguineous drainage.
[2019-05-01 06:52] LABS: Eosinophils # (auto) 0.3 uL; Lymphocytes # (auto) 1.8 uL; Monocytes # (auto) 0.9 uL; Monocytes % (auto) 8.4 % (0.0-12.0); Nucleated Red Blood Cells % 0.1 %
[2019-05-01 06:55] LABS: Basophils # (auto) 0 uL; Basophils % (auto) 0.4 % (0.0-2.0); Eosinophils % (auto) 2.9 % (0.0-7.0); Hematocrit 26.9 % (36.0-46.0); Mean Corpuscular Hemoglobin 28.4 pg (28.0-32.0); Mean Corpuscular Hgb Conc. 33.5 g/dL (32.0-36.0); Mean Corpuscular Volume 84.6 fL (80.0-100.0); Neutrophils # (auto) 7.4 uL; Neutrophils % (auto) 71.3 % (37.0-80.0); Red Blood Cells 3.17 10^6/uL (4.0-5.20); Red Cell Distribution Width 14.8 % (11.8-14.3); White Blood Cell 10.4 10^3/uL (4.4-10.8)
--- NOTE | 2019-05-01 06:56 | NUR ---
Closing note patient resting in bed with even and unlabored respirations, no s/s of distress. Abd dressing clean, dry and intact. Drains secured and intact. Bed low locked position with side rails up x 2 and call light within reach.
[2019-05-01 06:59] LABS: Platelet Count (auto) 1049 10^3/uL (140-450)
--- NOTE | 2019-05-01 07:05 | NUR ---
Hospitalist paged RE: critical plt [phone] awaiting call back. informed dayshift [place] Del Cid, she is aware. Endorsed are to day shift [place] Del Cid.
[2019-05-01 08:00] VITALS: BP 107/57
[2019-05-01] MEDS: Ensure Enlive Chocolate 8oz Bottle PO SCH ×3 (08:06→18:07)
--- NOTE | 2019-05-01 09:00 | NUR ---
Platelet count-[phone], Dr. Ruff aware.
[2019-05-01] MEDS: LEVOFLOXACIN 500 MG TAB PO SCH (09:48)
[2019-05-01] MEDS: FUROSEMIDE 40 MG/4 ML VIAL IV SCH ×2 (09:48→21:29)
[2019-05-01] MEDS: POTASSIUM CHL 20 Meq TABLET PO SCH ×2 (09:48→21:28)
[2019-05-01] MEDS: SODIUM CHLOR 0.9% PF (SALINE LOCK) 10ML VIAL/SYR IV SCH ×2 (09:48→21:27)
[2019-05-01 12:00] VITALS: BP 118/65
[2019-05-01] MEDS: ASPirin-EC 81 mg tab PO SCH (13:04)
[2019-05-01] MEDS: IRON SUCROSE COMPLEX 200 MG in SODIUM CHL 0.9% 100 ML IV SCH (13:04)
--- NOTE | 2019-05-01 13:45 | NUR ---
Dr. Palacios at bedside, intraperitoneal drain and subcutaneous drain removed. Abdominal midline incision open to air. Fernandez's tube drain intact.
--- NOTE | 2019-05-01 14:00 | NUR ---
Patient ambulated on the hallway. Tolerated well.
[2019-05-01 17:00] VITALS: BP 104/62
--- NOTE | 2019-05-01 20:00 | NUR ---
Opening Shift Note Assumed care of patient, awake and alert, oriented x 4, follows direction. On room air with even and unlabored respirations, no S/S of distress or SOB. Abd wound clean and dry, open to air, verma tube secured and intact. Patient turns independently in bed. Patient ambulates with steady gait using walker. IV intact and patent. Bed low locked position with side rails up x 2 and call light within reach. Instructed on POC and to call for assist PRN, will continue to monitor for changes Q1hr and PRN.
[2019-05-01 22:00] VITALS: BP 114/61
[2019-05-02] MEDS: HYDROmorphone HCL 2 MG/ML VL IV PRN ×5 (00:40→22:34)
[2019-05-02] MEDS: LORazepam 0.5 MG TAB PO PRN ×3 (03:10→19:00)
[2019-05-02 05:00] VITALS: BP 99/55
[2019-05-02] MEDS: metroNIDAZOLE 500 MG TAB PO SCH ×3 (05:32→22:33)
[2019-05-02 06:13] LABS: Hemoglobin 9.1 g/dL (12.2-16.2); Mean Corpuscular Volume 83.8 fL (80.0-100.0); Red Cell Distribution Width 15.1 % (11.8-14.3)
[2019-05-02 06:18] LABS: Hematocrit 26.8 % (36.0-46.0); Mean Corpuscular Hemoglobin 28.3 pg (28.0-32.0); Mean Corpuscular Hgb Conc. 33.8 g/dL (32.0-36.0); White Blood Cell 10.6 10^3/uL (4.4-10.8)
[2019-05-02 06:49] LABS: Platelet Count (auto) 1035 10^3/uL (140-450)
[2019-05-02 06:51] LABS: Band Neutrophils % (manual) 0; Basophils % (manual) 0 (0.0-2.0); Blast Cells 0; Metamyelocytes % 0; Myelocytes % 0; Promyelocytes % 0; Reactive Lymphocytes 0
--- NOTE | 2019-05-02 06:51 | NUR ---
Closing note patient resting in bed with even and unlabored respirations, no s/s of distress. Bed low locked position with side rails up x 2 and call light within reach.
--- NOTE | 2019-05-02 07:35 | NUR ---
RECEIVED PT LYING IN BED AAOX4, PLEASANT AND COOPERATIVE AND WAS ASKING FOR WHEN HER PAIN MED CAN BE GIVEN AND PT INFORMED OF SAME. PT STATED THAT HER PAIN IS TOLERABLE AT THIS TIME 6/10 ABDOMINAL THROBBING AND PRESSURE PAIN. SHIFT ASSESSMENT DONE AND CHARTED. PLAN OF CARE, MEDS, TREATMENTS AND SAFETY DISCUSSED WITH PT AND PT VERBALIZED UNDERSTANDING. WILL CONTINUE TO MONITOR PT.
[2019-05-02 07:46] LABS: Eosinophils % (manual) 3 (0-7); Lymphocytes % (manual) 19 (10.0-50.0); Monocytes % (manual) 7 (0-12)
[2019-05-02] MEDS: Ensure Enlive Chocolate 8oz Bottle PO SCH ×3 (08:41→18:07)
[2019-05-02 09:00] VITALS: BP 121/68
--- NOTE | 2019-05-02 09:20 | NUR ---
DR. CUEVAS WAS IN TO SEE PT AND LEFT NO NEW ORDERS.
[2019-05-02] MEDS: ASPirin-EC 81 mg tab PO SCH (10:00)
[2019-05-02] MEDS: SODIUM CHLOR 0.9% PF (SALINE LOCK) 10ML VIAL/SYR IV SCH ×2 (10:00→22:32)
[2019-05-02] MEDS: POTASSIUM CHL 20 Meq TABLET PO SCH ×2 (10:56→22:33)
[2019-05-02] MEDS: LEVOFLOXACIN 500 MG TAB PO SCH (10:57)
[2019-05-02] MEDS: FUROSEMIDE 40 MG/4 ML VIAL IV SCH ×2 (10:58→22:00)
[2019-05-02] MEDS: METOCLOPRAMIDE HCL 5MG/ml INJ 2ml VIAL IV PRN (12:18)
--- NOTE | 2019-05-02 12:33 | NUR ---
DR. VARMA WAS IN TO SEE PT AND GAVE NEW ORDERS. WANTED TO HAVE PT WEANED FROM DILAUDID BEFORE SHE CAN BE DISCHARGE. PT AWARE OF SAME.
[2019-05-02 13:00] VITALS: BP 121/78
[2019-05-02] MEDS: IRON SUCROSE COMPLEX 200 MG in SODIUM CHL 0.9% 100 ML IV SCH (13:39)
[2019-05-02] MEDS: ACETAMINOPHEN/CODEINE#3 (300/30mg) TAB PO PRN (15:33)
[2019-05-02] MEDS: HYDROcodone-ACET 5/325MG TAB PO PRN (17:10)
[2019-05-02 17:17] VITALS: BP 111/61
[2019-05-02] MEDS: ONDANSETRON HCL 4 MG/2 ML VIAL IV PRN (17:18)
[2019-05-02 22:00] VITALS: BP 130/78
[2019-05-03] MEDS: HYDROcodone-ACET 5/325MG TAB PO PRN ×4 (01:55→21:30)
[2019-05-03] MEDS: metroNIDAZOLE 500 MG TAB PO SCH ×3 (05:12→21:30)
[2019-05-03] MEDS: HYDROmorphone HCL 2 MG/ML VL IV PRN (05:12)
[2019-05-03 05:53] VITALS: BP 122/56
[2019-05-03 06:26] LABS: Lymphocytes # (auto) 1.6 uL; Monocytes # (auto) 0.8 uL; Neutrophils # (auto) 6.9 uL; Nucleated Red Blood Cells % 0.1 %
[2019-05-03 06:30] LABS: Basophils # (auto) 0.1 uL; Basophils % (auto) 0.6 % (0.0-2.0); Eosinophils # (auto) 0.3 uL; Eosinophils % (auto) 2.8 % (0.0-7.0); Hemoglobin 9.1 g/dL (12.2-16.2); Lymphocytes % (auto) 16.6 % (10.0-50.0); Mean Corpuscular Hemoglobin 28.5 pg (28.0-32.0); Mean Corpuscular Hgb Conc. 33.6 g/dL (32.0-36.0); Mean Corpuscular Volume 84.8 fL (80.0-100.0); Monocytes % (auto) 8.6 % (0.0-12.0); Neutrophils % (auto) 71.4 % (37.0-80.0); Red Blood Cells 3.19 10^6/uL (4.0-5.20); Red Cell Distribution Width 14.9 % (11.8-14.3); White Blood Cell 9.6 10^3/uL (4.4-10.8)
[2019-05-03 06:45] LABS: Platelet Count (auto) 1150 10^3/uL (140-450)
--- NOTE | 2019-05-03 07:30 | NUR ---
RECEIVED REPORT FROM NIGHT NURSE. PATIENT RESTING IN BED. SURGICAL INCISION TO ABDOMEN OPEN TO AIR, DRAINING PURULENT DRAINAGE. WASH CLOTH PLACED IN MESH UNDERWEAR TO HELP WITH DRAINAGE MANAGEMENT.NO DISTRESS NOTED. WILL CONTINUE TO MONITOR.
--- NOTE | 2019-05-03 07:50 | NUR ---
Critical lab value called in by laborer ammunition assembly, [id number] and Hospitalist paged at this time. .
[2019-05-03] MEDS: Ensure Enlive Chocolate 8oz Bottle PO SCH ×3 (08:00→15:40)
[2019-05-03 09:00] VITALS: BP 108/66
[2019-05-03] MEDS: FUROSEMIDE 40 MG/4 ML VIAL IV SCH (10:00)
--- NOTE | 2019-05-03 10:00 | NUR ---
DOCTOR AVANI AT BEDSIDE.
[2019-05-03] MEDS: SODIUM CHLOR 0.9% PF (SALINE LOCK) 10ML VIAL/SYR IV SCH ×2 (10:09→21:30)
[2019-05-03] MEDS: LEVOFLOXACIN 500 MG TAB PO SCH (10:09)
[2019-05-03] MEDS: ASPirin-EC 81 mg tab PO SCH (10:09)
[2019-05-03] MEDS: POTASSIUM CHL 20 Meq TABLET PO SCH (10:09)
[2019-05-03] MEDS ORDERED: HYDROmorphone HCL 2 MG/ML VL IV PRN (10:15)
[2019-05-03 13:00] VITALS: BP 118/58
[2019-05-03] MEDS: LORazepam 0.5 MG TAB PO PRN ×2 (14:26→21:30)
[2019-05-03 17:08] VITALS: BP 111/62
[2019-05-03 22:00] VITALS: BP 133/65
[2019-05-04] MEDS: HYDROcodone-ACET 5/325MG TAB PO PRN ×2 (02:59→08:06)
[2019-05-04 05:00] VITALS: BP 115/60
[2019-05-04 06:00] LABS: Basophils # (auto) 0.1 uL; Basophils % (auto) 0.7 % (0.0-2.0); Eosinophils # (auto) 0.2 uL; Eosinophils % (auto) 2.9 % (0.0-7.0); Hemoglobin 9.1 g/dL (12.2-16.2); Neutrophils # (auto) 5.6 uL
[2019-05-04 06:03] LABS: Hematocrit 26.6 % (36.0-46.0); Lymphocytes # (auto) 1.5 uL; Lymphocytes % (auto) 18.7 % (10.0-50.0); Mean Corpuscular Hemoglobin 29.1 pg (28.0-32.0); Mean Corpuscular Hgb Conc. 34.3 g/dL (32.0-36.0); Mean Corpuscular Volume 84.8 fL (80.0-100.0); Monocytes # (auto) 0.9 uL; Monocytes % (auto) 10.5 % (0.0-12.0); Neutrophils % (auto) 67.2 % (37.0-80.0); Red Blood Cells 3.14 10^6/uL (4.0-5.20); Red Cell Distribution Width 14.9 % (11.8-14.3); White Blood Cell 8.3 10^3/uL (4.4-10.8)
[2019-05-04 06:09] LABS: Platelet Count (auto) 1004 10^3/uL (140-450)
[2019-05-04] MEDS: metroNIDAZOLE 500 MG TAB PO SCH (06:20)
[2019-05-04] MEDS: LORazepam 0.5 MG TAB PO PRN (06:21)
--- NOTE | 2019-05-04 07:30 | NUR ---
RECEIVED REPORT FROM NIGHT NURSE. PATIENT RESTING IN BED, NO DISTRESS NOTED. WILL CONTINUE TO MONITOR.
[2019-05-04] MEDS: Ensure Enlive Chocolate 8oz Bottle PO SCH (08:00)
[2019-05-04 09:00] VITALS: BP 142/76
[2019-05-04] MEDS: LEVOFLOXACIN 500 MG TAB PO SCH (09:57)
[2019-05-04] MEDS: ASPirin-EC 81 mg tab PO SCH (09:57)
[2019-05-04] MEDS: SODIUM CHLOR 0.9% PF (SALINE LOCK) 10ML VIAL/SYR IV SCH (09:58)
== END 2019-05-04 12:49 | disposition home or self-care (01) | DRG 336 ==
LOC: ER 18:56 → OVERFLOW 18:57 → WEST WING 23:17 → TELE-WESTW 04-15 23:30 → WEST WING 04-25 11:30
PROVIDERS: ADMIT Hospitalist; ATTEND Internal Medicine
PROC: 0D9670Z Drainage of Stomach with Drainage Device, Via Natural or Artificial Opening (ICD-10-PCS; principal; 2019-04-13)
PROC: 0DN80ZZ Release Small Intestine, Open Approach (ICD-10-PCS; 2019-04-15)
PROC: 0DTJ0ZZ Resection of Appendix, Open Approach (ICD-10-PCS; 2019-04-15)
PROC: 0D9A00Z Drainage of Jejunum with Drainage Device, Open Approach (ICD-10-PCS; 2019-04-15)
PROC: 0W9J00Z Drainage of Pelvic Cavity with Drainage Device, Open Approach (ICD-10-PCS; 2019-04-23)
DX: K56.609 Unspecified intestinal obstruction, unspecified as to partial versus complete obstruction (principal); N39.0 Urinary tract infection, site not specified; L02.211 Cutaneous abscess of abdominal wall; R18.8 Other ascites; D64.9 Anemia, unspecified; G89.18 Other acute postprocedural pain; D47.3 Essential (hemorrhagic) thrombocythemia; N73.9 Female pelvic inflammatory disease, unspecified; Z80.3 Family history of malignant neoplasm of breast; Z82.3 Family history of stroke; Z98.84 Bariatric surgery status
CPT/HCPCS: 36415; 36569; 71045; 71046; 72192; 74018; 74176; 74177; 74250; 76700; 80048; 80053; 80061; 80202; 81001; 82040; 82607; 82728; 82746; 82962; 83010; 83036; 83540; 83550; 83605; 83615; 83690; 83735; 84100; 84132; 84443; 84478; 84702; 85007; 85025; 85027; 85045; 85610; 85730; 86850; 86900; 86901; 87040; 87070; 87075; 87076; 87077; 87081; 87086; 87186; 87205; 93306; 94644; 94762; 96361; 96374; 96375; 97163; C9113; G0378; J0131; J0330; J0690; J1756; J1815; J1885; J1956; J2001; J2250; J2405; J2543; J2704; J3480; J7060; J7131; P9047